=== PATIENT | female | born 1945 | race Caucasian/White ===

== ENCOUNTER 2018-06-07 16:57 | Inpatient (IN) | payer MEDICARE, MEDICAID ==
[~2018-06-07] VITALS: Ht 167.6 cm; Wt 37.2 kg
[2018-06-07] MEDS ORDERED: FLUT12AE3 IH (17:17)
[2018-06-07] MEDS ORDERED: ALBU4TAB6 PO (17:17)
[2018-06-07] MEDS ORDERED: ASPI-1159 PO (17:17)
[2018-06-07] MEDS ORDERED: PRED5TAB48 PO (17:17)
[2018-06-07] MEDS ORDERED: ENAL10TA PO (17:17)
[2018-06-07] MEDS ORDERED: GABA-531 PO (17:17)
[2018-06-07] MEDS ORDERED: CYCLO BOTHEYE (17:17)
[2018-06-07] MEDS ORDERED: MECL-127 PO (17:17)
[2018-06-07] MEDS ORDERED: NITR0.4T49 SL (17:17)
[2018-06-07] MEDS ORDERED: TRAM50TA3 PO (17:17)
[2018-06-07] MEDS ORDERED: LAMO200T PO (17:17)
[2018-06-07] MEDS ORDERED: DIAZ10TA4 PO (17:17)
[2018-06-07] MEDS ORDERED: KETOROLAC 15MG/ML VIAL IV ONE (18:30)
[2018-06-07] MEDS ORDERED: LEVOFLOXACIN 750MG PREMIX 150 ML IV ONE (18:30)
[2018-06-07] MEDS ORDERED: SODIUM CHLORIDE 0.9% 1000ML BAG (SEPSIS BOLUS) IV ONE (18:30)
[2018-06-07 19:09] LABS: BASOPHILS % 1.2 % (0.0-2.0); EOSINOPHILS % 0.3 % (0.0-5.0); HEMATOCRIT. 44.9 % (36.0-48.0); HEMOGLOBIN. 13.9 g/dL (12.0-16.0); LYMPHOCYTES % 11.6 % (20.0-50.0); MEAN CORPUSCULAR VOLUME 80.4 fL (81.0-99.0); MEAN PLATELET VOLUME 7.9 fl (7.4-10.4); MONOCYTES % 7.6 % (2.0-8.0); NEUTROPHILS % 79.3 % (40.0-76.0); PLATELET 358 x1000/uL (130-400); RED BLOOD CELL COUNT 5.59 mill/uL (4.2-5.4); RED CELL DISTRIBUTION WIDTH 17.3 % (11.6-14.6)
[2018-06-07 19:14] LABS: CHLORIDE 102 mEq/L (98-107)
[2018-06-07 19:24] LABS: INR 0.9; PARTIAL THROMBOPLASTIN TIME 24.1 sec (23.4-31.0); PROTHROMBIN TIME 9.4 sec (9.1-11.1)
[2018-06-07] MEDS ORDERED: LORAZEPAM 1MG TABLET PO PRN (23:00)
[2018-06-07] MEDS ORDERED: DOCUSATE SODIUM 100MG CAPSULE PO PRN (23:00)
[2018-06-07] MEDS ORDERED: NA PHOS,M-B/NA PHOS,DI-BA ENEMA 118ML PR PRN (23:00)
[2018-06-07] MEDS ORDERED: ONDANSETRON HCL 4MG/2ML INJ IV PRN (23:00)
[2018-06-07] MEDS ORDERED: LEVOFLOXACIN 500MG PREMIX 100 ML IV SCH (23:00)
[2018-06-07] MEDS ORDERED: ACETAMINOPHEN 325MG TABLET PO PRN (23:00)
[2018-06-07] MEDS ORDERED: NITROGLYCERIN 0.4MG TABLET SL SL PRN (23:00)
[2018-06-07] MEDS ORDERED: KETOROLAC 15MG/ML VIAL IV PRN (23:00)
[2018-06-07] MEDS ORDERED: ZOLPIDEM TARTRATE 5MG TABLET PO PRN (23:00)
[2018-06-07] MEDS ORDERED: MAGNESIUM/ALUMINUM HYDROXIDE/SIMETHICONE 30ML UDC PO PRN (23:00)
[2018-06-07] MEDS ORDERED: CLONIDINE 0.1MG TABLET PO PRN (23:00)
[2018-06-07] MEDS ORDERED: TRAMADOL 50MG TABLET PO PRN (23:00)
[2018-06-07] MEDS ORDERED: IPRATROPIUM/ALBUTEROL 0.5-3(2.5)MG/3ML NEB INH PRN (23:00)
[2018-06-08 01:00] VITALS: BP 137/84
[2018-06-08 04:00] VITALS: BP 139/67
[2018-06-08] MEDS ORDERED: CEFTRIAXONE 1 G PREMIX 50 ML IV SCH (05:00)
[2018-06-08] MEDS: GABAPENTIN 100MG CAPSULE PO SCH ×3 (07:10→21:01)
[2018-06-08 08:00] VITALS: BP 122/65
[2018-06-08 08:09] LABS: CREATINE KINASE 70 IU/L (26-192)
[2018-06-08 08:10] LABS: CREATINE KINASE MB FRACTION 2.8 ng/mL (0.5-3.6)
[2018-06-08] MEDS: FAMOTIDINE 20MG TABLET PO SCH ×2 (08:43→09:00)
[2018-06-08] MEDS: ASCORBIC ACID 500 MG TABLET PO SCH ×3 (08:44→20:08)
[2018-06-08] MEDS: ZINC SULFATE 220 MG ( 50 ) CAPSULE PO SCH ×2 (08:45→09:00)
[2018-06-08] MEDS: ASPIRIN 325MG EC TABLET PO SCH (08:45)
[2018-06-08] MEDS: METOPROLOL TARTRATE 25MG TABLET PO SCH ×3 (08:45→20:57)
[2018-06-08] MEDS: ENOXAPARIN 40MG/0.4ML SYR SUBCUT SCH ×2 (08:48→09:00)
[2018-06-08] MEDS: PREDNISONE 5MG TABLET PO SCH (11:45)
[2018-06-08 12:00] VITALS: BP 136/79
[2018-06-08] MEDS: IPRATROPIUM/ALBUTEROL 0.5-3(2.5)MG/3ML NEB HHN SCH ×2 (14:21→20:20)
[2018-06-08 16:00] VITALS: BP 124/60
[2018-06-08] MEDS: PREDNISONE 1MG TABLET PO SCH (17:00)
[2018-06-08 18:20] LABS: CREATINE KINASE 77 IU/L (26-192)
[2018-06-08 18:21] LABS: CREATINE KINASE MB FRACTION 2.7 ng/mL (0.5-3.6)
[2018-06-08 20:00] VITALS: BP 156/80
[2018-06-08] MEDS: GUAIFENESIN 200MG/10ML SUGAR FREE UDC PO PRN (20:06)
[2018-06-08] MEDS: LAMOTRIGINE 150MG TABLET PO SCH (20:08)
[2018-06-08] MEDS: LEVOFLOXACIN 250MG PREMIX 50 ML IV SCH (20:08)
[2018-06-09] VITALS: BP 156/80
[2018-06-09] MEDS: GUAIFENESIN 200MG/10ML SUGAR FREE UDC PO PRN ×3 (00:44→19:51)
[2018-06-09 04:00] VITALS: BP 144/66
[2018-06-09] MEDS: IPRATROPIUM/ALBUTEROL 0.5-3(2.5)MG/3ML NEB HHN SCH ×6 (04:00→21:15)
[2018-06-09] MEDS: CEFTRIAXONE 1 G PREMIX 50 ML IV SCH (04:59)
[2018-06-09] MEDS: GABAPENTIN 100MG CAPSULE PO SCH ×3 (05:00→21:00)
[2018-06-09 08:00] VITALS: BP 144/90
[2018-06-09] MEDS: ASPIRIN 325MG EC TABLET PO SCH (08:35)
[2018-06-09] MEDS: ASCORBIC ACID 500 MG TABLET PO SCH ×2 (08:36→21:05)
[2018-06-09] MEDS: METOPROLOL TARTRATE 25MG TABLET PO SCH ×2 (08:39→20:59)
[2018-06-09] MEDS: FAMOTIDINE 20MG TABLET PO SCH (08:39)
[2018-06-09] MEDS: ZINC SULFATE 220 MG ( 50 ) CAPSULE PO SCH (08:39)
[2018-06-09] MEDS: LAMOTRIGINE 150MG TABLET PO SCH ×2 (08:39→20:59)
[2018-06-09] MEDS: ENOXAPARIN 40MG/0.4ML SYR SUBCUT SCH (08:40)
[2018-06-09] MEDS: PREDNISONE 5MG TABLET PO SCH (08:40)
[2018-06-09 12:00] VITALS: BP 136/80
[2018-06-09 16:00] VITALS: BP 122/68
[2018-06-09] MEDS: PREDNISONE 1MG TABLET PO SCH (16:44)
[2018-06-09] MEDS: LEVOFLOXACIN 250MG PREMIX 50 ML IV SCH (19:43)
[2018-06-09 20:00] VITALS: BP 126/76
[2018-06-10] VITALS: BP 130/66
[2018-06-10] MEDS: IPRATROPIUM/ALBUTEROL 0.5-3(2.5)MG/3ML NEB HHN SCH ×2 (00:40→06:13)
[2018-06-10 04:00] VITALS: BP 140/60
[2018-06-10] MEDS: CEFTRIAXONE 1 G PREMIX 50 ML IV SCH (05:33)
[2018-06-10] MEDS: GABAPENTIN 100MG CAPSULE PO SCH (05:33)
== END 2018-06-10 09:07 | disposition left against medical advice (07) | DRG 189 ==
LOC: ER 16:57 → 6WST 22:50 → SUPCPDRO 22:52 → EDBEDREQTM 23:08 → EDBEDREQ 23:08 → ENRESERV 23:13
PROVIDERS: ADMIT Internal Medicine; ATTEND Internal Medicine
DX: J96.00 Acute respiratory failure, unspecified whether with hypoxia or hypercapnia (principal); J44.1 Chronic obstructive pulmonary disease with (acute) exacerbation; Z68.1 Body mass index [BMI] 19.9 or less, adult; K29.70 Gastritis, unspecified, without bleeding; G40.909 Epilepsy, unspecified, not intractable, without status epilepticus; Z86.73 Personal history of transient ischemic attack (TIA), and cerebral infarction without residual deficits; Z90.710 Acquired absence of both cervix and uterus; Z99.81 Dependence on supplemental oxygen; Z85.118 Personal history of other malignant neoplasm of bronchus and lung; Z88.6 Allergy status to analgesic agent; Z88.5 Allergy status to narcotic agent; Z91.81 History of falling; Z53.21 Procedure and treatment not carried out due to patient leaving prior to being seen by health care provider
CPT/HCPCS: 36415; 71045; 73030; 74176; 82550; 82553; 83605; 84145; 84484; 87804; 93005; 93306; 93970; 94640; 96365; 96366; 96375; 97162; 99285; J0696; J1650; J1885; J1956; J7030; J7050; J7512; J7620

== ENCOUNTER 2018-06-17 16:12 | Emergency (ER) | payer MEDICARE, MEDICAID ==
[~2018-06-17] VITALS: Ht 162.6 cm; Wt 45.0 kg
[~2018-06-17 16:12] MED LIST: ALBU4TAB6 PO; ASPI-1159 PO; CYCLO BOTHEYE; DIAZ10TA4 PO; ENAL10TA PO; FLUT12AE3 IH; GABA-531 PO; LAMO200T PO; MECL-127 PO; NITR0.4T49 SL; PRED5TAB48 PO; TRAM50TA3 PO
[2018-06-17] MEDS ORDERED: ALBUTEROL (0.083%) 2.5MG/3ML NEB HHN STA (18:17)
[2018-06-17] MEDS ORDERED: ONDANSETRON HCL 4MG/2ML INJ IV STA (18:17)
[2018-06-17] MEDS ORDERED: DIAZEPAM 5 MG TABLET PO ONE (18:30)
[2018-06-17] MEDS: SODIUM CHLORIDE 0.9% 500 ML IV ONE ×2 (18:48→18:50)
[2018-06-17 19:15] LABS: EOSINOPHILS % 0.4 % (0.0-5.0); HEMATOCRIT. 41.3 % (36.0-48.0); HEMOGLOBIN. 12.9 g/dL (12.0-16.0); LYMPHOCYTES % 11.8 % (20.0-50.0); MEAN CORPUSCULAR HEMOGLOBIN 25.2 pg (28.0-32.0); MEAN CORPUSCULAR VOLUME 80.6 fL (81.0-99.0); MEAN PLATELET VOLUME 7.2 fl (7.4-10.4); MONOCYTES % 4.6 % (2.0-8.0); NEUTROPHILS % 82.2 % (40.0-76.0); PLATELET 327 x1000/uL (130-400); RED BLOOD CELL COUNT 5.13 mill/uL (4.2-5.4); RED CELL DISTRIBUTION WIDTH 18.8 % (11.6-14.6)
[2018-06-17 19:18] LABS: CHLORIDE 104 mEq/L (98-107)
[2018-06-17 19:22] LABS: INR 0.9; PARTIAL THROMBOPLASTIN TIME 25.9 sec (23.4-31.0); PROTHROMBIN TIME 9.4 sec (9.1-11.1)
[2018-06-17 19:30] VITALS: BP 157/81
[2018-06-17 19:40] LABS: CLARITY URINE CLEAR (CLEAR); COLOR URINE YELLOW (YELLOW); KETONES URINE NEGATIVE (NEGATIVE); LEUKOCYTE ESTERASE URINE TRACE (NEGATIVE); NITRITE URINE NEGATIVE (NEGATIVE); OCCULT BLOOD URINE NEGATIVE (NEGATIVE); PH URINE 7.5 (4.5-8.0); PROTEIN URINE NEGATIVE (NEGATIVE); SPECIFIC GRAVITY URINE 1.005 (1.005-1.030); UROBILINOGEN URINE 0.2 E.U./dL (0.2-1.0)
== END 2018-06-18 15:53 | disposition left against medical advice (07) ==
LOC: ER 16:17
DX: R42 Dizziness and giddiness (principal); K57.90 Diverticulosis of intestine, part unspecified, without perforation or abscess without bleeding; C80.1 Malignant (primary) neoplasm, unspecified; J44.9 Chronic obstructive pulmonary disease, unspecified; R56.9 Unspecified convulsions; Z88.5 Allergy status to narcotic agent; Z79.82 Long term (current) use of aspirin; Z86.73 Personal history of transient ischemic attack (TIA), and cerebral infarction without residual deficits; Z90.710 Acquired absence of both cervix and uterus
CPT/HCPCS: 36415; 71045; 80053; 81003; 83735; 83880; 84484; 85025; 85610; 85730; 93005; 96361; 96374; 99284; J2405; J7040; J7611

== ENCOUNTER 2018-07-02 22:52 | Inpatient (IN) | payer MEDICARE, MEDICAID ==
[~2018-07-02] VITALS: Ht 167.6 cm; Wt 39.0 kg
[2018-07-03] MEDS ORDERED: KETOROLAC 30MG/ML VIAL IV STA (00:10)
[2018-07-03 00:40] LABS: BASOPHILS % 0.9 % (0.0-2.0); HEMATOCRIT. 40.8 % (36.0-48.0); HEMOGLOBIN. 12.7 g/dL (12.0-16.0); LYMPHOCYTES % 14.7 % (20.0-50.0); MEAN CORPUSCULAR HEMOGLOBIN 25.2 pg (28.0-32.0); MEAN CORPUSCULAR VOLUME 80.6 fL (81.0-99.0); MEAN PLATELET VOLUME 6.7 fl (7.4-10.4); MONOCYTES % 5.8 % (2.0-8.0); NEUTROPHILS % 77.6 % (40.0-76.0); PLATELET 295 x1000/uL (130-400); RED BLOOD CELL COUNT 5.06 mill/uL (4.2-5.4); RED CELL DISTRIBUTION WIDTH 18.9 % (11.6-14.6)
[2018-07-03 00:52] LABS: CHLORIDE 102 mEq/L (98-107)
[2018-07-03] MEDS ORDERED: MORPHINE SULFATE 10 MG/ML CPJ IV ONE (04:15)
[2018-07-03] MEDS ORDERED: DIPHENHYDRAMINE 50MG/ML VIAL IV PRN (06:45)
[2018-07-03] MEDS ORDERED: CLONIDINE 0.1MG TABLET PO PRN (06:45)
[2018-07-03] MEDS ORDERED: LORAZEPAM 2MG/ML CPJ IV PRN (06:45)
[2018-07-03] MEDS ORDERED: MAGNESIUM/ALUMINUM HYDROXIDE/SIMETHICONE 30ML UDC PO PRN (06:45)
[2018-07-03] MEDS ORDERED: GUAIFENESIN 200MG/10ML SUGAR FREE UDC PO PRN (06:45)
[2018-07-03] MEDS ORDERED: ONDANSETRON HCL 4MG/2ML INJ IV PRN (06:45)
[2018-07-03] MEDS ORDERED: HYDRALAZINE 20MG/ML VIAL IV PRN (06:45)
[2018-07-03] MEDS ORDERED: ACETAMINOPHEN 325MG TABLET PO PRN (06:45)
[2018-07-03] MEDS ORDERED: DOCUSATE SODIUM 100MG CAPSULE PO PRN (06:45)
[2018-07-03] MEDS ORDERED: TRAMADOL 50MG TABLET PO PRN (07:00)
[2018-07-03 15:56] LABS: CREATINE KINASE 120 IU/L (26-192)
[2018-07-03 15:57] LABS: CREATINE KINASE MB FRACTION 3.5 ng/mL (0.5-3.6)
[2018-07-03] MEDS: IPRATROPIUM/ALBUTEROL 0.5-3(2.5)MG/3ML NEB INH PRN (16:58)
[2018-07-03 17:17] VITALS: BP 142/71
[2018-07-03 17:26] VITALS: BP 142/71
[2018-07-03 20:00] VITALS: BP 144/86
[2018-07-03] MEDS: SODIUM CHLORIDE 0.9% INJ 3ML FLUSH IVF SCH (21:41)
[2018-07-03] MEDS: ENOXAPARIN 40MG/0.4ML SYR SUBCUT SCH (21:41)
[2018-07-03] MEDS: ASPIRIN 81MG EC TABLET PO SCH (21:42)
[2018-07-04] VITALS: BP 119/64
[2018-07-04] MEDS: IPRATROPIUM/ALBUTEROL 0.5-3(2.5)MG/3ML NEB INH PRN (00:12)
[2018-07-04 04:00] VITALS: BP 146/77
[2018-07-04] MEDS: SODIUM CHLORIDE 0.9% INJ 3ML FLUSH IVF SCH (05:23)
[2018-07-04 07:30] LABS: HEMATOCRIT. 39.8 % (36.0-48.0); HEMOGLOBIN. 12.4 g/dL (12.0-16.0); RED BLOOD CELL COUNT 4.91 mill/uL (4.2-5.4)
[2018-07-04 07:31] LABS: BASOPHILS % 1.6 % (0.0-2.0); LYMPHOCYTES % 33.5 % (20.0-50.0); MEAN CORPUSCULAR HEMOGLOBIN 25.3 pg (28.0-32.0); MEAN CORPUSCULAR VOLUME 81.1 fL (81.0-99.0); MEAN PLATELET VOLUME 7.2 fl (7.4-10.4); MONOCYTES % 8.1 % (2.0-8.0); NEUTROPHILS % 54.8 % (40.0-76.0); PLATELET 264 x1000/uL (130-400); RED CELL DISTRIBUTION WIDTH 18.6 % (11.6-14.6)
[2018-07-04 07:48] LABS: CHLORIDE 104 mEq/L (98-107)
[2018-07-04 08:00] VITALS: BP 124/59
[2018-07-04 08:03] LABS: CREATINE KINASE 80 IU/L (26-192)
[2018-07-04 08:04] LABS: HDL CHOLESTEROL 79 mg/dL (40-59); LDL CHOLESTEROL 89 mg/dL (5-100)
[2018-07-04 08:10] LABS: CREATINE KINASE MB FRACTION 2.3 ng/mL (0.5-3.6)
[2018-07-04] MEDS: ASPIRIN 81MG EC TABLET PO SCH (08:36)
[2018-07-04 08:59] VITALS: BP 125/56
[2018-07-04] MEDS: ENOXAPARIN 40MG/0.4ML SYR SUBCUT SCH (10:00)
== END 2018-07-04 10:58 | disposition home or self-care (01) | DRG 312 ==
LOC: ER 22:52 → 7WST 07-03 01:57 → EDBEDREQ 07-03 02:00 → EDBEDREQTM 07-03 02:00 → ENRESERV 07-03 14:04
PROVIDERS: ADMIT Internal Medicine; ATTEND Internal Medicine
DX: R55 Syncope and collapse (principal); F12.90 Cannabis use, unspecified, uncomplicated; G40.909 Epilepsy, unspecified, not intractable, without status epilepticus; F17.210 Nicotine dependence, cigarettes, uncomplicated; J44.9 Chronic obstructive pulmonary disease, unspecified; I10 Essential (primary) hypertension; G89.29 Other chronic pain; M25.511 Pain in right shoulder; Z90.710 Acquired absence of both cervix and uterus; Z86.73 Personal history of transient ischemic attack (TIA), and cerebral infarction without residual deficits; Z88.5 Allergy status to narcotic agent; Z71.6 Tobacco abuse counseling
CPT/HCPCS: 36415; 71045; 73030; 80061; 82550; 82553; 83036; 83880; 84439; 84443; 84484; 85379; 93005; 93306; 93970; 96374; 96375; 99285; J1650; J1885; J2270; J7620

== ENCOUNTER 2018-11-17 14:39 | Inpatient (IN) | payer MEDICARE, MEDICAID ==
[~2018-11-17] VITALS: Ht 154.9 cm; Wt 36.3 kg
[~2018-11-17 14:39] MED LIST changes: -ASPI-1159 PO; +ASPI-1393 PO
[2018-11-17] MEDS ORDERED: SODIUM CHLORIDE 0.9% 1,000 ML IV ONE (15:44)
[2018-11-17] MEDS ORDERED: ONDANSETRON HCL 4MG/2ML INJ IV STA (15:44)
[2018-11-17] MEDS ORDERED: MORPHINE SULFATE 4 MG/ML CPJ (NOT FOR IM USE) IV STA (15:44)
[2018-11-17 16:13] LABS: EOSINOPHILS % 1.5 % (0.0-5.0); HEMATOCRIT. 46.1 % (36.0-48.0); HEMOGLOBIN. 14.5 g/dL (12.0-16.0); LYMPHOCYTES % 14.2 % (20.0-50.0); MEAN CORPUSCULAR HEMOGLOBIN 25.1 pg (28.0-32.0); MEAN PLATELET VOLUME 7.1 fl (7.4-10.4); NEUTROPHILS % 76.3 % (40.0-76.0); PLATELET 320 x1000/uL (130-400); RED BLOOD CELL COUNT 5.76 mill/uL (4.2-5.4); RED CELL DISTRIBUTION WIDTH 21.2 % (11.6-14.6)
[2018-11-17 16:16] LABS: CHLORIDE 100 mEq/L (98-107)
[2018-11-17 16:18] LABS: PROTHROMBIN TIME 9.9 sec (9.6-11.0)
[2018-11-17] MEDS ORDERED: IOHEXOL-300 100 ML BOTTLE ONE (17:24)
[2018-11-17] MEDS ORDERED: MORPHINE SULFATE 4 MG/ML CPJ (NOT FOR IM USE) IV ONE (18:15)
[2018-11-17] MEDS ORDERED: IPRATROPIUM/ALBUTEROL 0.5-3(2.5)MG/3ML NEB INH PRN (19:30)
[2018-11-17] MEDS ORDERED: ONDANSETRON HCL 4MG/2ML INJ IV PRN (19:30)
[2018-11-17] MEDS ORDERED: DOCUSATE SODIUM 100MG CAPSULE PO PRN (19:30)
[2018-11-17] MEDS ORDERED: GUAIFENESIN 200MG/10ML SUGAR FREE UDC PO PRN (19:30)
[2018-11-17] MEDS ORDERED: NA PHOS,M-B/NA PHOS,DI-BA ENEMA 118ML PR PRN (19:30)
[2018-11-17] MEDS ORDERED: DIPHENHYDRAMINE 50MG/ML VIAL IV PRN (19:30)
[2018-11-17] MEDS ORDERED: HYDROCODONE/ACETAMINOPHEN 5/325MG TABLET PO PRN (19:30)
[2018-11-17] MEDS ORDERED: MAGNESIUM/ALUMINUM HYDROXIDE/SIMETHICONE 30ML UDC PO PRN (19:30)
[2018-11-17] MEDS ORDERED: CLONIDINE 0.1MG TABLET PO PRN (19:30)
[2018-11-17] MEDS ORDERED: ACETAMINOPHEN 325MG TABLET PO PRN (19:30)
[2018-11-17 19:57] LABS: CHLORIDE 105 mEq/L (98-107)
[2018-11-17 22:00] VITALS: BP 134/61
[2018-11-17] MEDS ORDERED: IPRATROPIUM/ALBUTEROL 0.5-3(2.5)MG/3ML NEB INH SCH (23:30)
[2018-11-17] MEDS: MORPHINE SULFATE 2 MG/ML CPJ (NOT FOR IM USE) IV PRN (23:52)
[2018-11-18] VITALS: BP 134/61
[2018-11-18] MEDS: LORAZEPAM 2MG/ML CPJ IV PRN ×2 (03:40→14:28)
[2018-11-18 04:00] VITALS: BP 119/54
[2018-11-18] MEDS: IPRATROPIUM/ALBUTEROL 0.5-3(2.5)MG/3ML NEB INH SCH ×5 (04:14→20:47)
[2018-11-18] MEDS ORDERED: DIAZ10TA MT (05:36)
[2018-11-18] MEDS ORDERED: LAM2 MT (05:36)
[2018-11-18] MEDS ORDERED: DIPH1TAB MT (05:36)
[2018-11-18 06:32] LABS: CHLORIDE 102 mEq/L (98-107)
[2018-11-18 06:40] LABS: BASOPHILS % 1.2 % (0.0-2.0); EOSINOPHILS % 1.8 % (0.0-5.0); HEMATOCRIT. 41.1 % (36.0-48.0); HEMOGLOBIN. 12.8 g/dL (12.0-16.0); LYMPHOCYTES % 31.6 % (20.0-50.0); MEAN CORPUSCULAR VOLUME 80.3 fL (81.0-99.0); MEAN PLATELET VOLUME 7.3 fl (7.4-10.4); MONOCYTES % 7.9 % (2.0-8.0); NEUTROPHILS % 57.5 % (40.0-76.0); PLATELET 298 x1000/uL (130-400); RED BLOOD CELL COUNT 5.13 mill/uL (4.2-5.4); RED CELL DISTRIBUTION WIDTH 21.1 % (11.6-14.6)
[2018-11-18 06:45] LABS: LDL CHOLESTEROL 80 mg/dL (5-100); T4 FREE 0.75 ng/dL (0.76-1.46)
[2018-11-18 06:46] LABS: HDL CHOLESTEROL 86 mg/dL (40-59)
[2018-11-18 08:00] VITALS: BP 131/76
[2018-11-18] MEDS: DEXT 5%/0.45% NACL 1000ML 1,000 ML IV SCH (11:47)
[2018-11-18 12:00] VITALS: BP 128/55
[2018-11-18 16:00] VITALS: BP 136/71
[2018-11-18 20:00] VITALS: BP 164/79
[2018-11-18] MEDS: MORPHINE SULFATE 2 MG/ML CPJ (NOT FOR IM USE) IV PRN (21:44)
[2018-11-18] MEDS ORDERED: DIAZEPAM 5 MG TABLET PO PRN (22:15)
[2018-11-18] MEDS: GABAPENTIN 300MG CAPSULE PO SCH (23:16)
[2018-11-19] VITALS: BP 109/52
[2018-11-19 04:00] VITALS: BP 117/60
[2018-11-19] MEDS: DEXT 5%/0.45% NACL 1000ML 1,000 ML IV SCH (04:35)
[2018-11-19] MEDS: IPRATROPIUM/ALBUTEROL 0.5-3(2.5)MG/3ML NEB INH SCH ×5 (04:48→16:22)
[2018-11-19] MEDS: GABAPENTIN 300MG CAPSULE PO SCH ×2 (06:02→13:27)
[2018-11-19 06:18] LABS: CHLORIDE 103 mEq/L (98-107)
[2018-11-19 06:22] LABS: BASOPHILS % 1.4 % (0.0-2.0); EOSINOPHILS % 2.9 % (0.0-5.0); HEMATOCRIT. 38.6 % (36.0-48.0); HEMOGLOBIN. 11.9 g/dL (12.0-16.0); LYMPHOCYTES % 30.1 % (20.0-50.0); MEAN CORPUSCULAR HEMOGLOBIN 24.8 pg (28.0-32.0); MEAN PLATELET VOLUME 7.1 fl (7.4-10.4); MONOCYTES % 8.7 % (2.0-8.0); NEUTROPHILS % 56.9 % (40.0-76.0); PLATELET 270 x1000/uL (130-400); RED BLOOD CELL COUNT 4.82 mill/uL (4.2-5.4); RED CELL DISTRIBUTION WIDTH 20.9 % (11.6-14.6)
[2018-11-19 08:00] VITALS: BP 103/53
[2018-11-19] MEDS: ENALAPRIL 5MG TABLET PO SCH ×2 (08:58→17:00)
[2018-11-19] MEDS: LAMOTRIGINE 100MG TABLET PO SCH ×2 (09:00→17:59)
[2018-11-19] MEDS ORDERED: PREDNISONE 5MG TABLET PO SCH ×2 (09:00→19:00)
[2018-11-19 16:00] VITALS: BP 118/67
== END 2018-11-19 18:30 | disposition left against medical advice (07) | DRG 445 ==
LOC: ER 14:49 → 6EST 18:44 → ENRESERV 19:48 → 6EST 22:27
PROVIDERS: ADMIT Internal Medicine; ATTEND Internal Medicine
DX: K83.8 Other specified diseases of biliary tract (principal); Z68.1 Body mass index [BMI] 19.9 or less, adult; E46 Unspecified protein-calorie malnutrition; R64 Cachexia; E86.0 Dehydration; F12.90 Cannabis use, unspecified, uncomplicated; I10 Essential (primary) hypertension; M25.519 Pain in unspecified shoulder; M54.9 Dorsalgia, unspecified; G89.29 Other chronic pain; Z53.21 Procedure and treatment not carried out due to patient leaving prior to being seen by health care provider; J43.9 Emphysema, unspecified; N28.1 Cyst of kidney, acquired; F17.200 Nicotine dependence, unspecified, uncomplicated; Z85.118 Personal history of other malignant neoplasm of bronchus and lung; Z90.710 Acquired absence of both cervix and uterus; Z88.5 Allergy status to narcotic agent; Z88.6 Allergy status to analgesic agent; Z71.6 Tobacco abuse counseling; J44.9 Chronic obstructive pulmonary disease, unspecified
CPT/HCPCS: 36415; 74177; 78227; 80048; 80061; 83605; 84439; 84443; 93005; 94640; 96374; 99285; A9537; J2060; J2270; J2405; J7030; J7512; J7620; Q9967

== ENCOUNTER 2019-02-06 20:54 | Emergency (ER) | payer MEDICARE, MEDICAID ==
[~2019-02-06] VITALS: Ht 162.6 cm; Wt 37.0 kg
[~2019-02-06 20:54] MED LIST changes: +DIAZ10TA MT; +DIPH1TAB MT; +LAM2 MT
[2019-02-06] MEDS ORDERED: METHYLPREDNISOLONE SOD SUCC 125 MG/2 ML VIAL IV STA (21:42)
[2019-02-06] MEDS ORDERED: IPRATROPIUM BROMIDE (0.02%) 0.5MG/2.5ML NEB HHN STA (21:42)
[2019-02-06] MEDS ORDERED: ALBUTEROL (0.083%) 2.5MG/3ML NEB HHN STA (21:42)
[2019-02-06] MEDS ORDERED: SODIUM CHLORIDE 0.9% 1000ML BAG (SEPSIS BOLUS) IV ONE (21:45)
[2019-02-06] MEDS ORDERED: LEVOFLOXACIN 750MG PREMIX 150 ML IV ONE (21:45)
[2019-02-06] MEDS ORDERED: ASPIRIN 81MG TABLET PO ONE (21:45)
[2019-02-06 23:00] LABS: BASOPHILS % 1.4 % (0.0-2.0); HEMATOCRIT. 42.8 % (36.0-48.0); HEMOGLOBIN. 13.5 g/dL (12.0-16.0); LYMPHOCYTES % 18.8 % (20.0-50.0); MEAN CORPUSCULAR HEMOGLOBIN 26.4 pg (28.0-32.0); MEAN CORPUSCULAR VOLUME 83.6 fL (81.0-99.0); MEAN PLATELET VOLUME 6.8 fl (7.4-10.4); MONOCYTES % 6.7 % (2.0-8.0); NEUTROPHILS % 72.1 % (40.0-76.0); PLATELET 298 x1000/uL (130-400); RED BLOOD CELL COUNT 5.12 mill/uL (4.2-5.4); RED CELL DISTRIBUTION WIDTH 16.2 % (11.6-14.6)
[2019-02-06 23:06] LABS: CHLORIDE 98 mEq/L (98-107)
[2019-02-06 23:10] LABS: INR 0.9; PARTIAL THROMBOPLASTIN TIME 26.7 sec (23.4-31.0); PROTHROMBIN TIME 9.5 sec (9.6-11.0)
[2019-02-07 00:40] VITALS: BP 161/92
== END 2019-02-07 01:04 | disposition left against medical advice (07) ==
LOC: ER 20:54
DX: J44.9 Chronic obstructive pulmonary disease, unspecified (principal); M25.511 Pain in right shoulder; I11.9 Hypertensive heart disease without heart failure; N28.9 Disorder of kidney and ureter, unspecified; Z88.5 Allergy status to narcotic agent; Z79.899 Other long term (current) drug therapy; Z79.82 Long term (current) use of aspirin
CPT/HCPCS: 36415; 71045; 73030; 80053; 83605; 84145; 84484; 85025; 85610; 85730; 87040; 93005; 94644; 96365; 96366; 96375; 99285; J1956; J2930; J7030; J7611

== ENCOUNTER 2019-02-18 20:12 | Emergency (ER) | payer MEDICARE, MEDICAID ==
[~2019-02-18] VITALS: Ht 172.7 cm; Wt 52.0 kg
[2019-02-18] MEDS ORDERED: SODIUM CHLORIDE 0.9% 1,000 ML IV ONE (22:08)
[2019-02-18] MEDS ORDERED: ONDANSETRON HCL 4MG/2ML INJ IV STA (22:08)
[2019-02-18] MEDS ORDERED: KETOROLAC 30MG/ML VIAL IV STA (22:08)
[2019-02-18 23:30] LABS: BASOPHILS % 1.1 % (0.0-2.0); CHLORIDE 100 mEq/L (98-107); EOSINOPHILS % 0.7 % (0.0-5.0); HEMATOCRIT. 41.8 % (36.0-48.0); INR 0.9; LYMPHOCYTES % 17.9 % (20.0-50.0); MEAN CORPUSCULAR HEMOGLOBIN 26.1 pg (28.0-32.0); MEAN CORPUSCULAR VOLUME 84.1 fL (81.0-99.0); MEAN PLATELET VOLUME 6.9 fl (7.4-10.4); MONOCYTES % 6.8 % (2.0-8.0); NEUTROPHILS % 73.5 % (40.0-76.0); PLATELET 273 x1000/uL (130-400); PROTHROMBIN TIME 9.5 sec (9.6-11.0); RED BLOOD CELL COUNT 4.98 mill/uL (4.2-5.4)
[2019-02-19] MEDS ORDERED: MAGNESIUM CITRATE 300ML SOLUTION PO ONE
[2019-02-19] MEDS ORDERED: ALBUTEROL (0.5%) 2.5MG/0.5ML NEB HHN ONE (00:45)
[2019-02-19] MEDS ORDERED: ALBUTEROL (0.5%) 2.5MG/0.5ML NEB HHN SCH (01:30)
[2019-02-19 01:44] VITALS: BP 122/54
== END 2019-02-19 02:30 | disposition home or self-care (01) ==
LOC: ER 23:20
DX: R10.9 Unspecified abdominal pain (principal); K59.00 Constipation, unspecified; J44.9 Chronic obstructive pulmonary disease, unspecified; I10 Essential (primary) hypertension; Z86.73 Personal history of transient ischemic attack (TIA), and cerebral infarction without residual deficits; Z79.82 Long term (current) use of aspirin; Z79.899 Other long term (current) drug therapy; Z88.5 Allergy status to narcotic agent
CPT/HCPCS: 36415; 74176; 80053; 83690; 84484; 85025; 85610; 93005; 99284; J1885; J2405; J7030

== ENCOUNTER 2019-03-07 12:15 | Inpatient (IN) | payer MEDICARE, MEDICAID ==
[~2019-03-07] VITALS: Ht 175.3 cm; Wt 49.9 kg
[2019-03-07] MEDS ORDERED: ALBUTEROL (0.083%) 2.5MG/3ML NEB HHN STA (12:35)
[2019-03-07] MEDS ORDERED: IPRATROPIUM BROMIDE (0.02%) 0.5MG/2.5ML NEB HHN STA (12:35)
[2019-03-07] MEDS ORDERED: METHYLPREDNISOLONE SOD SUCC 125 MG/2 ML VIAL IV STA (12:35)
[2019-03-07 13:17] LABS: BASOPHILS % 0.8 % (0.0-2.0); EOSINOPHILS % 1.9 % (0.0-5.0); HEMATOCRIT. 43.6 % (36.0-48.0); HEMOGLOBIN. 13.6 g/dL (12.0-16.0); LYMPHOCYTES % 28.2 % (20.0-50.0); MEAN CORPUSCULAR HEMOGLOBIN 25.7 pg (28.0-32.0); MEAN CORPUSCULAR VOLUME 82.6 fL (81.0-99.0); MEAN PLATELET VOLUME 6.6 fl (7.4-10.4); MONOCYTES % 9.5 % (2.0-8.0); NEUTROPHILS % 59.6 % (40.0-76.0); PLATELET 305 x1000/uL (130-400); RED BLOOD CELL COUNT 5.27 mill/uL (4.2-5.4); RED CELL DISTRIBUTION WIDTH 16.2 % (11.6-14.6)
[2019-03-07 13:23] LABS: CHLORIDE 97 mEq/L (98-107)
[2019-03-07 13:46] LABS: BG BASE EXCESS 5.5 mmol/L (-2.0-2.0); BG CARBOXYHEMOGLOBIN 3.6 % (0.5-1.5); BG DEOXYHEMOGLOBIN 1.2 % (0.0-5.0); BG FRACTION INSPIRED OXYGEN 60; BG HCO3 ACT 32.4 mmol/L (22.0-26.0); BG METHEMOGLOBIN 0.1 % (0.0-1.5); BG OXYGEN SATURATION 98.8 % (92.0-98.5); BG OXYHEMOGLOBIN 95.1 % (94.0-97.0); BG PH 7.373 (7.350-7.450); BG PO2 130.4 mmHg (75.0-100.0); BG SAMPLE SITE RIGHT RADIAL; BG TOTAL HEMOGLOBIN 14.1 g/dL (12.0-18.0)
[2019-03-07] MEDS ORDERED: GUAIFENESIN 200MG/10ML SUGAR FREE UDC PO PRN (16:15)
[2019-03-07] MEDS ORDERED: DOCUSATE SODIUM 100MG CAPSULE PO PRN (16:15)
[2019-03-07] MEDS ORDERED: ONDANSETRON HCL 4MG/2ML INJ IV PRN (16:15)
[2019-03-07] MEDS ORDERED: CLONIDINE 0.1MG TABLET PO PRN (16:15)
[2019-03-07] MEDS ORDERED: ACETAMINOPHEN 325MG TABLET PO PRN (16:15)
[2019-03-07] MEDS ORDERED: IPRATROPIUM/ALBUTEROL 0.5-3(2.5)MG/3ML NEB NEB PRN (16:15)
[2019-03-07] MEDS ORDERED: MAGNESIUM/ALUMINUM HYDROXIDE/SIMETHICONE 30ML UDC PO PRN (16:15)
[2019-03-07] MEDS ORDERED: LEVOFLOXACIN 500MG PREMIX 100 ML IV NR (17:10)
[2019-03-07 21:00] VITALS: BP 133/82
[2019-03-07] MEDS ORDERED: HYDROMORPHONE HCL/PF 2MG/ML CPJ IV PRN (21:00)
[2019-03-07] MEDS ORDERED: ENOXAPARIN 40MG/0.4ML SYR SUBCUT SCH (21:00)
[2019-03-07] MEDS: METHYLPREDNISOLONE SOD SUCC 125 MG/2 ML VIAL IV SCH (22:31)
[2019-03-08] MEDS: METHYLPREDNISOLONE SOD SUCC 125 MG/2 ML VIAL IV SCH ×3 (03:00→15:52)
[2019-03-08] MEDS: IPRATROPIUM/ALBUTEROL 0.5-3(2.5)MG/3ML NEB NEB SCH ×3 (05:34→15:00)
[2019-03-08 07:53] LABS: BASOPHILS % 0.5 % (0.0-2.0); EOSINOPHILS % 0.1 % (0.0-5.0); HEMOGLOBIN. 12.2 g/dL (12.0-16.0); LYMPHOCYTES % 11.2 % (20.0-50.0); MEAN CORPUSCULAR HEMOGLOBIN 25.7 pg (28.0-32.0); MEAN CORPUSCULAR VOLUME 82.4 fL (81.0-99.0); MEAN PLATELET VOLUME 7.1 fl (7.4-10.4); NEUTROPHILS % 84.2 % (40.0-76.0); PLATELET 324 x1000/uL (130-400); RED BLOOD CELL COUNT 4.73 mill/uL (4.2-5.4); RED CELL DISTRIBUTION WIDTH 15.8 % (11.6-14.6)
[2019-03-08 08:00] VITALS: BP 148/83
[2019-03-08 08:39] LABS: CHLORIDE 97 mEq/L (98-107)
[2019-03-08] MEDS ORDERED: ASPIRIN 81MG EC TABLET PO SCH (09:00)
[2019-03-08] MEDS ORDERED: AMLODIPINE 10MG TABLET PO SCH (09:00)
[2019-03-08] MEDS ORDERED: DIAZEPAM 5 MG TABLET PO PRN (11:00)
[2019-03-08] MEDS ORDERED: NICOTINE 21MG PATCH TD SCH (11:00)
[2019-03-08] MEDS ORDERED: NITROGLYCERIN 0.4MG TABLET SL SL PRN (11:00)
[2019-03-08] MEDS: LORATADINE 10MG TABLET PO SCH ×2 (11:53→11:55)
[2019-03-08] MEDS ORDERED: GABAPENTIN 300MG CAPSULE PO SCH (17:00)
[2019-03-08] MEDS ORDERED: MONTELUKAST SODIUM 10MG TABLET PO SCH (17:00)
[2019-03-08] MEDS ORDERED: LEVOFLOXACIN 500MG PREMIX 100 ML IV SCH (17:30)
[2019-03-08] MEDS ORDERED: LEVOFLOXACIN 250MG PREMIX 50 ML IV SCH (20:00)
== END 2019-03-08 16:17 | disposition left against medical advice (07) | DRG 189 ==
LOC: ER 12:15 → 7WST 14:36 → ENRESERV 19:41 → 7WST 21:13
PROVIDERS: ADMIT Hospitalist; ATTEND Hospitalist
PROC: 5A09357 Assistance with Respiratory Ventilation, Less than 24 Consecutive Hours, Continuous Positive Airway Pressure (ICD-10-PCS; principal; 2019-03-07)
DX: J96.00 Acute respiratory failure, unspecified whether with hypoxia or hypercapnia (principal); J44.1 Chronic obstructive pulmonary disease with (acute) exacerbation; E87.1 Hypo-osmolality and hyponatremia; F17.210 Nicotine dependence, cigarettes, uncomplicated; G40.909 Epilepsy, unspecified, not intractable, without status epilepticus; I25.10 Atherosclerotic heart disease of native coronary artery without angina pectoris; J84.10 Pulmonary fibrosis, unspecified; Z85.05 Personal history of malignant neoplasm of liver; I10 Essential (primary) hypertension; Z85.118 Personal history of other malignant neoplasm of bronchus and lung; Z86.73 Personal history of transient ischemic attack (TIA), and cerebral infarction without residual deficits; Z99.81 Dependence on supplemental oxygen; Z88.5 Allergy status to narcotic agent
CPT/HCPCS: 36415; 36600; 71045; 82375; 82805; 83880; 84484; 93005; 93970; 94640; 94644; 94660; 99291; J1170; J1956; J2930; J7611; J7620; A4315

== ENCOUNTER 2019-03-11 21:14 | Inpatient (IN) | payer MEDICARE, MEDICAID ==
[~2019-03-11] VITALS: Ht 327.7 cm; Wt 49.4 kg
[~2019-03-11 21:14] MED LIST changes: -CYCLO BOTHEYE
[2019-03-11 23:15] LABS: BASOPHILS % 0.8 % (0.0-2.0); HEMATOCRIT. 40.2 % (36.0-48.0); HEMOGLOBIN. 12.4 g/dL (12.0-16.0); LYMPHOCYTES % 11.4 % (20.0-50.0); MEAN CORPUSCULAR HEMOGLOBIN 25.3 pg (28.0-32.0); MEAN CORPUSCULAR VOLUME 82.1 fL (81.0-99.0); MEAN PLATELET VOLUME 6.7 fl (7.4-10.4); MONOCYTES % 6.8 % (2.0-8.0); PLATELET 297 x1000/uL (130-400); RED CELL DISTRIBUTION WIDTH 15.9 % (11.6-14.6)
[2019-03-11 23:23] LABS: CHLORIDE 99 mEq/L (98-107)
[2019-03-11] MEDS ORDERED: ALBUTEROL (0.083%) 2.5MG/3ML NEB HHN ONE (23:45)
[2019-03-12] MEDS ORDERED: LORAZEPAM 2MG/ML CPJ IV PRN (03:30)
[2019-03-12] MEDS ORDERED: DOCUSATE SODIUM 100MG CAPSULE PO PRN (03:30)
[2019-03-12] MEDS ORDERED: ONDANSETRON HCL 4MG/2ML INJ IV PRN (03:30)
[2019-03-12] MEDS ORDERED: NA PHOS,M-B/NA PHOS,DI-BA ENEMA 118ML PR PRN (03:30)
[2019-03-12] MEDS ORDERED: MORPHINE SULFATE 2 MG/ML CPJ (NOT FOR IM USE) IV PRN (03:30)
[2019-03-12] MEDS ORDERED: IPRATROPIUM/ALBUTEROL 0.5-3(2.5)MG/3ML NEB NEB PRN (03:30)
[2019-03-12] MEDS ORDERED: CLONIDINE 0.1MG TABLET PO PRN (03:30)
[2019-03-12] MEDS ORDERED: ACETAMINOPHEN 325MG TABLET PO PRN (03:30)
[2019-03-12] MEDS ORDERED: LEVOFLOXACIN 500MG PREMIX 100 ML IV ONE (06:10)
[2019-03-12 08:50] VITALS: BP 134/82
[2019-03-12] MEDS: METHYLPREDNISOLONE SOD SUCC 125 MG/2 ML VIAL IV SCH ×2 (09:00→13:13)
[2019-03-12 09:23] VITALS: BP 134/82
[2019-03-12] MEDS: IPRATROPIUM/ALBUTEROL 0.5-3(2.5)MG/3ML NEB NEB SCH ×3 (09:48→21:01)
[2019-03-12 11:50] VITALS: BP 163/98
[2019-03-12] MEDS: AMLODIPINE 10MG TABLET PO SCH (13:12)
[2019-03-12] MEDS: ENOXAPARIN 40MG/0.4ML SYR SUBCUT SCH (13:15)
[2019-03-12 15:51] VITALS: BP 135/76
[2019-03-12] MEDS: METHYLPREDNISOLONE SOD SUCC 40 MG/ML VIAL IV SCH ×2 (17:36→23:19)
[2019-03-12 20:00] VITALS: BP 121/70
[2019-03-12] MEDS: BUDESONIDE 0.5MG/2ML NEB HHN SCH (21:02)
[2019-03-12] MEDS: GUAIFENESIN 600MG ER TABLET PO SCH (21:45)
[2019-03-12] MEDS: GUAIFENESIN 200MG/10ML SUGAR FREE UDC PO PRN (23:19)
[2019-03-13] VITALS: BP 129/80
[2019-03-13] MEDS: IPRATROPIUM/ALBUTEROL 0.5-3(2.5)MG/3ML NEB NEB SCH ×4 (00:51→21:30)
[2019-03-13] MEDS ORDERED: PRED2.5T4 PO (01:20)
[2019-03-13 04:00] VITALS: BP 144/74
[2019-03-13] MEDS ORDERED: LEVOFLOXACIN 250MG PREMIX 50 ML IV SCH (06:00)
[2019-03-13 07:46] LABS: BASOPHILS % 0.2 % (0.0-2.0); HEMATOCRIT. 38.5 % (36.0-48.0); HEMOGLOBIN. 11.9 g/dL (12.0-16.0); LYMPHOCYTES % 6.1 % (20.0-50.0); MEAN CORPUSCULAR HEMOGLOBIN 25.3 pg (28.0-32.0); MEAN CORPUSCULAR VOLUME 81.7 fL (81.0-99.0); MEAN PLATELET VOLUME 7.3 fl (7.4-10.4); MONOCYTES % 1.7 % (2.0-8.0); PLATELET 294 x1000/uL (130-400); RED BLOOD CELL COUNT 4.72 mill/uL (4.2-5.4)
[2019-03-13 07:50] LABS: CHLORIDE 99 mEq/L (98-107)
[2019-03-13 08:00] VITALS: BP 128/72
[2019-03-13 08:00] LABS: BG BASE EXCESS 6.3 mmol/L (-2.0-2.0); BG CARBOXYHEMOGLOBIN 1.1 % (0.5-1.5); BG DEOXYHEMOGLOBIN 3.7 % (0.0-5.0); BG HCO3 ACT 32.1 mmol/L (22.0-26.0); BG METHEMOGLOBIN 0.2 % (0.0-1.5); BG OXYGEN SATURATION 96.3 % (92.0-98.5); BG PCO2 51.2 mmHg (35.0-45.0); BG PH 7.415 (7.350-7.450); BG PO2 80.3 mmHg (75.0-100.0); BG SAMPLE SITE RIGHT BRACHIAL; BG TOTAL HEMOGLOBIN 13.2 g/dL (12.0-18.0); BG VENT MODE NASAL CANNULA
[2019-03-13] MEDS: NICOTINE 14MG PATCH TD SCH (08:57)
[2019-03-13] MEDS: ENOXAPARIN 40MG/0.4ML SYR SUBCUT SCH ×2 (08:58→09:00)
[2019-03-13] MEDS: GUAIFENESIN 600MG ER TABLET PO SCH ×2 (09:00→21:57)
[2019-03-13] MEDS: AMLODIPINE 10MG TABLET PO SCH (09:00)
[2019-03-13] MEDS: METHYLPREDNISOLONE SOD SUCC 40 MG/ML VIAL IV SCH ×2 (09:01→16:34)
[2019-03-13] MEDS: BUDESONIDE 0.5MG/2ML NEB HHN SCH ×2 (09:24→21:30)
[2019-03-13] MEDS ORDERED: LACTULOSE 20G/30ML UDC PO PRN (10:30)
[2019-03-13 11:42] LABS: PLATELET ESTIMATE NORMAL
[2019-03-13 12:00] VITALS: BP 109/70
[2019-03-13] MEDS: POLYETHYLENE GLYCOL 3350 (17GM) 1 DOSE PACK PO SCH (13:36)
[2019-03-13 16:00] VITALS: BP 127/64
[2019-03-13 20:31] VITALS: BP 119/68
[2019-03-14] MEDS: METHYLPREDNISOLONE SOD SUCC 40 MG/ML VIAL IV SCH ×2 (00:32→09:39)
[2019-03-14 00:38] VITALS: BP 118/71
[2019-03-14] MEDS: IPRATROPIUM/ALBUTEROL 0.5-3(2.5)MG/3ML NEB NEB SCH ×2 (01:54→08:39)
[2019-03-14] MEDS: GUAIFENESIN 200MG/10ML SUGAR FREE UDC PO PRN (02:38)
[2019-03-14 04:00] VITALS: BP 126/71
[2019-03-14] MEDS ORDERED: LEVOFLOXACIN 250MG PREMIX 50 ML IV SCH (06:00)
[2019-03-14 08:00] VITALS: BP 107/60
[2019-03-14] MEDS: BUDESONIDE 0.5MG/2ML NEB HHN SCH (08:39)
[2019-03-14] MEDS: ENOXAPARIN 30MG/0.3ML SYR SUBCUT SCH ×2 (09:00→09:41)
[2019-03-14] MEDS: NICOTINE 14MG PATCH TD SCH ×2 (09:00→09:46)
[2019-03-14] MEDS: POLYETHYLENE GLYCOL 3350 (17GM) 1 DOSE PACK PO SCH (09:00)
[2019-03-14] MEDS: AMLODIPINE 10MG TABLET PO SCH (09:00)
[2019-03-14] MEDS: GUAIFENESIN 600MG ER TABLET PO SCH (09:41)
[2019-03-14 10:41] VITALS: BP 107/60
== END 2019-03-14 11:25 | disposition home or self-care (01) | DRG 189 ==
LOC: ER 21:14 → 6WST 03-12 00:41 → SUPCPDRO 03-12 03:16 → ENRESERV 03-12 07:00
PROVIDERS: ADMIT Hospitalist; ATTEND Hospitalist
DX: J96.20 Acute and chronic respiratory failure, unspecified whether with hypoxia or hypercapnia (principal); J44.1 Chronic obstructive pulmonary disease with (acute) exacerbation; F17.210 Nicotine dependence, cigarettes, uncomplicated; E11.9 Type 2 diabetes mellitus without complications; I10 Essential (primary) hypertension; K59.00 Constipation, unspecified; Z79.82 Long term (current) use of aspirin; Z88.8 Allergy status to other drugs, medicaments and biological substances; Z79.899 Other long term (current) drug therapy; Z99.81 Dependence on supplemental oxygen; Z88.5 Allergy status to narcotic agent; Z91.19 Patient's noncompliance with other medical treatment and regimen; Z86.73 Personal history of transient ischemic attack (TIA), and cerebral infarction without residual deficits; Z82.49 Family history of ischemic heart disease and other diseases of the circulatory system; Z71.89 Other specified counseling
CPT/HCPCS: 36415; 36600; 71045; 82375; 82805; 83880; 84484; 93005; 94640; 96365; 99285; J1650; J1956; J2060; J2270; J2920; J2930; J7611; J7620; J7626

== ENCOUNTER 2019-03-23 09:17 | Inpatient (IN) | payer MEDICARE, MEDICAID ==
[~2019-03-23] VITALS: Ht 162.6 cm; Wt 31.0 kg
[~2019-03-23 09:17] MED LIST changes: +PRED2.5T4 PO
[2019-03-23] MEDS ORDERED: METHYLPREDNISOLONE SOD SUCC 125 MG/2 ML VIAL IV STA (10:27)
[2019-03-23] MEDS ORDERED: ALBUTEROL (0.083%) 2.5MG/3ML NEB HHN STA (10:27)
[2019-03-23] MEDS ORDERED: IPRATROPIUM BROMIDE (0.02%) 0.5MG/2.5ML NEB HHN STA (10:27)
[2019-03-23 10:38] LABS: EOSINOPHILS % 1.2 % (0.0-5.0); HEMATOCRIT. 40.5 % (36.0-48.0); HEMOGLOBIN. 12.7 g/dL (12.0-16.0); LYMPHOCYTES % 12.4 % (20.0-50.0); MEAN CORPUSCULAR HEMOGLOBIN 25.9 pg (28.0-32.0); MEAN CORPUSCULAR VOLUME 82.4 fL (81.0-99.0); MEAN PLATELET VOLUME 6.8 fl (7.4-10.4); MONOCYTES % 5.7 % (2.0-8.0); NEUTROPHILS % 79.7 % (40.0-76.0); PLATELET 367 x1000/uL (130-400); RED BLOOD CELL COUNT 4.92 mill/uL (4.2-5.4); RED CELL DISTRIBUTION WIDTH 17.1 % (11.6-14.6)
[2019-03-23 10:49] LABS: CHLORIDE 96 mEq/L (98-107)
[2019-03-23] MEDS ORDERED: NA PHOS,M-B/NA PHOS,DI-BA ENEMA 118ML PR PRN (12:15)
[2019-03-23] MEDS ORDERED: CLONIDINE 0.1MG TABLET PO PRN (12:15)
[2019-03-23] MEDS ORDERED: DOCUSATE SODIUM 100MG CAPSULE PO PRN (12:15)
[2019-03-23] MEDS ORDERED: MAGNESIUM/ALUMINUM HYDROXIDE/SIMETHICONE 30ML UDC PO PRN (12:15)
[2019-03-23] MEDS ORDERED: ONDANSETRON HCL 4MG/2ML INJ IV PRN (12:15)
[2019-03-23] MEDS ORDERED: GUAIFENESIN 200MG/10ML SUGAR FREE UDC PO PRN (12:15)
[2019-03-23] MEDS ORDERED: ACETAMINOPHEN 325MG TABLET PO PRN (12:15)
[2019-03-23] MEDS ORDERED: ENOXAPARIN 40MG/0.4ML SYR SUBCUT SCH (12:15)
[2019-03-23] MEDS ORDERED: HYDROCODONE/ACETAMINOPHEN 5/325MG TABLET PO PRN (12:15)
[2019-03-23 13:35] VITALS: BP 143/85
[2019-03-23] MEDS: ENOXAPARIN 30MG/0.3ML SYR SUBCUT SCH ×2 (14:00→14:34)
[2019-03-23] MEDS: AMLODIPINE 10MG TABLET PO SCH ×2 (14:00→14:35)
[2019-03-23] MEDS: METHYLPREDNISOLONE SOD SUCC 125 MG/2 ML VIAL IV SCH ×2 (14:35→18:48)
[2019-03-23] MEDS ORDERED: LEVOFLOXACIN 500MG PREMIX 100 ML IV NR (15:00)
[2019-03-23 16:00] VITALS: BP 157/90
[2019-03-23] MEDS: IPRATROPIUM/ALBUTEROL 0.5-3(2.5)MG/3ML NEB NEB SCH ×2 (16:18→21:00)
[2019-03-23 18:11] VITALS: BP 144/77
[2019-03-23 20:00] VITALS: BP 145/86
[2019-03-23] MEDS: MORPHINE SULFATE 2 MG/ML CPJ (NOT FOR IM USE) IV PRN (20:54)
[2019-03-24] VITALS: BP 150/93
[2019-03-24] MEDS: MORPHINE SULFATE 2 MG/ML CPJ (NOT FOR IM USE) IV PRN ×4 (00:55→23:15)
[2019-03-24] MEDS: METHYLPREDNISOLONE SOD SUCC 125 MG/2 ML VIAL IV SCH ×2 (00:56→07:04)
[2019-03-24] MEDS: IPRATROPIUM/ALBUTEROL 0.5-3(2.5)MG/3ML NEB NEB SCH ×5 (01:52→21:00)
[2019-03-24 04:00] VITALS: BP 145/84
[2019-03-24 07:00] LABS: HEMATOCRIT. 38.1 % (36.0-48.0); MEAN CORPUSCULAR HEMOGLOBIN 25.9 pg (28.0-32.0); MEAN CORPUSCULAR VOLUME 81.8 fL (81.0-99.0); PLATELET 374 x1000/uL (130-400); RED BLOOD CELL COUNT 4.65 mill/uL (4.2-5.4); RED CELL DISTRIBUTION WIDTH 16.7 % (11.6-14.6)
[2019-03-24 08:00] VITALS: BP 139/85
[2019-03-24] MEDS: AMLODIPINE 10MG TABLET PO SCH (08:15)
[2019-03-24] MEDS: ENOXAPARIN 30MG/0.3ML SYR SUBCUT SCH (08:15)
[2019-03-24 08:36] LABS: CHLORIDE 95 mEq/L (98-107)
[2019-03-24 10:25] LABS: PLATELET ESTIMATE NORMAL
[2019-03-24] MEDS: METHYLPREDNISOLONE SOD SUCC 40 MG/ML VIAL IV SCH ×3 (11:37→23:06)
[2019-03-24 11:48] LABS: BG BASE EXCESS 8.6 mmol/L (-2.0-2.0); BG CARBOXYHEMOGLOBIN 0.6 % (0.5-1.5); BG DEOXYHEMOGLOBIN 3.1 % (0.0-5.0); BG FRACTION INSPIRED OXYGEN 32; BG HCO3 ACT 35.1 mmol/L (22.0-26.0); BG METHEMOGLOBIN 0.1 % (0.0-1.5); BG OXYGEN SATURATION 96.9 % (92.0-98.5); BG OXYHEMOGLOBIN 96.2 % (94.0-97.0); BG PCO2 56.9 mmHg (35.0-45.0); BG PH 7.408 (7.350-7.450); BG PO2 86.7 mmHg (75.0-100.0); BG SAMPLE SITE LEFT RADIAL; BG TOTAL HEMOGLOBIN 12.7 g/dL (12.0-18.0); BG VENT MODE NASAL CANNULA
[2019-03-24 12:00] VITALS: BP 134/72
[2019-03-24] MEDS ORDERED: THROAT LOZENGES-BENZOCAINE/MENTH/CETYLPYRD CL LOZENGES MM PRN (12:30)
[2019-03-24] MEDS ORDERED: LEVOFLOXACIN 250MG PREMIX 50 ML IV SCH (14:00)
[2019-03-24 16:00] VITALS: BP 135/74
[2019-03-24] MEDS: IPRATROPIUM/ALBUTEROL 0.5-3(2.5)MG/3ML NEB NEB PRN (17:20)
[2019-03-24 20:00] VITALS: BP 135/78
[2019-03-25] VITALS: BP 128/69
[2019-03-25 04:00] VITALS: BP 125/73
[2019-03-25] MEDS: METHYLPREDNISOLONE SOD SUCC 40 MG/ML VIAL IV SCH (06:26)
[2019-03-25] MEDS: IPRATROPIUM/ALBUTEROL 0.5-3(2.5)MG/3ML NEB NEB SCH (07:24)
[2019-03-25 08:00] VITALS: BP 121/75
[2019-03-25] MEDS: ENOXAPARIN 30MG/0.3ML SYR SUBCUT SCH (08:29)
[2019-03-25] MEDS: AMLODIPINE 10MG TABLET PO SCH (08:31)
[2019-03-25] MEDS: IPRATROPIUM/ALBUTEROL 0.5-3(2.5)MG/3ML NEB NEB PRN (10:24)
[2019-03-25 10:37] VITALS: BP 121/75
== END 2019-03-25 12:59 | disposition home or self-care (01) | DRG 191 ==
LOC: ER 09:17 → 8WST 12:00 → EDBEDREQ 12:05 → SUPCPDRO 12:12 → ENRESERV 12:14
PROVIDERS: ADMIT Hospitalist; ATTEND Hospitalist
DX: J44.1 Chronic obstructive pulmonary disease with (acute) exacerbation (principal); E44.0 Moderate protein-calorie malnutrition; Z68.1 Body mass index [BMI] 19.9 or less, adult; I10 Essential (primary) hypertension; F17.210 Nicotine dependence, cigarettes, uncomplicated; Z82.49 Family history of ischemic heart disease and other diseases of the circulatory system; Z86.73 Personal history of transient ischemic attack (TIA), and cerebral infarction without residual deficits; Z88.5 Allergy status to narcotic agent; Z88.8 Allergy status to other drugs, medicaments and biological substances; Z79.82 Long term (current) use of aspirin; I25.2 Old myocardial infarction; Z85.9 Personal history of malignant neoplasm, unspecified
CPT/HCPCS: 36415; 36600; 71045; 82375; 82805; 83880; 84484; 93005; 94640; 99285; J1650; J1956; J2270; J2920; J2930; J7040; J7611; J7620

== ENCOUNTER 2020-02-06 18:36 | Emergency (ER) | payer MEDICARE, MEDICAID ==
[~2020-02-06] VITALS: Ht 172.7 cm; Wt 57.0 kg
[~2020-02-06 18:36] MED LIST changes: -ASPI-1393 PO; +ASPI-1497 PO; -LAMO200T PO; +LAMO200T9 PO
[2020-02-06] MEDS ORDERED: MORPHINE SULFATE 4 MG/ML CPJ (NOT FOR IM USE) IV STA (19:07)
[2020-02-06] MEDS ORDERED: SODIUM CHLORIDE 0.9% 1000ML BAG (SEPSIS BOLUS) IV ONE (19:15)
[2020-02-06] MEDS ORDERED: CEFTRIAXONE 1 G PREMIX 50 ML IV ONE (19:15)
[2020-02-06 20:21] LABS: BASOPHILS % 0.6 % (0.0-2.0); EOSINOPHILS % 0.7 % (0.0-5.0); HEMATOCRIT. 35.3 % (36.0-48.0); LYMPHOCYTES % 17.2 % (20.0-50.0); MEAN CORPUSCULAR HEMOGLOBIN 26.9 pg (28.0-32.0); MEAN CORPUSCULAR VOLUME 86.7 fL (81.0-99.0); MEAN PLATELET VOLUME 6.3 fl (7.4-10.4); MONOCYTES % 6.2 % (2.0-8.0); NEUTROPHILS % 75.3 % (40.0-76.0); PLATELET 354 x1000/uL (130-400); RED BLOOD CELL COUNT 4.07 mill/uL (4.2-5.4); RED CELL DISTRIBUTION WIDTH 17.7 % (11.6-14.6)
[2020-02-06 20:24] LABS: CLARITY URINE CLEAR (CLEAR); COLOR URINE YELLOW (YELLOW); KETONES URINE NEGATIVE (NEGATIVE); LEUKOCYTE ESTERASE URINE NEGATIVE (NEGATIVE); NITRITE URINE NEGATIVE (NEGATIVE); OCCULT BLOOD URINE NEGATIVE (NEGATIVE); PROTEIN URINE NEGATIVE (NEGATIVE); SPECIFIC GRAVITY URINE 1.013 (1.005-1.030); UROBILINOGEN URINE 0.2 E.U./dL (0.2-1.0)
[2020-02-06 20:33] LABS: CHLORIDE 100 mEq/L (98-107)
[2020-02-06 20:34] LABS: INR 0.9; PROTHROMBIN TIME 9.7 sec (9.6-11.0)
[2020-02-06] MEDS ORDERED: MORPHINE SULFATE 4 MG/ML CPJ (NOT FOR IM USE) IV ONE (22:30)
[2020-02-06 23:15] VITALS: BP 175/86
== END 2020-02-06 23:15 | disposition home or self-care (01) ==
LOC: ER 18:36 → CANBEDREQ 02-07 01:39
DX: R10.32 Left lower quadrant pain (principal); J44.9 Chronic obstructive pulmonary disease, unspecified; I10 Essential (primary) hypertension; I25.2 Old myocardial infarction; Z86.73 Personal history of transient ischemic attack (TIA), and cerebral infarction without residual deficits; Z79.82 Long term (current) use of aspirin; Z79.899 Other long term (current) drug therapy; Z88.5 Allergy status to narcotic agent
CPT/HCPCS: 36415; 74176; 80053; 81003; 83605; 83880; 84145; 84484; 85025; 85610; 87040; 87086; 93005; 96365; 96366; 96375; 96376; 99285; J0696; J2270; J7030

== ENCOUNTER 2020-02-17 15:03 | Inpatient (IN) | payer MEDICARE, MEDICAID ==
[~2020-02-17] VITALS: Ht 167.6 cm; Wt 55.3 kg
[2020-02-17] MEDS ORDERED: ALBUTEROL (0.083%) 2.5MG/3ML NEB HHN STA (15:54)
[2020-02-17] MEDS ORDERED: METHYLPREDNISOLONE SOD SUCC 125 MG/2 ML VIAL IV STA (15:54)
[2020-02-17] MEDS ORDERED: IPRATROPIUM BROMIDE (0.02%) 0.5MG/2.5ML NEB HHN STA (15:54)
[2020-02-17] MEDS ORDERED: AZITHROMYCIN 500 MG in DEXT 5% WATER 250 ML IV SCH (16:00)
[2020-02-17] MEDS ORDERED: CEFTRIAXONE 1 G PREMIX 50 ML IV ONE (16:00)
[2020-02-17 16:30] LABS: BASOPHILS % 0.8 % (0.0-2.0); EOSINOPHILS % 0.6 % (0.0-5.0); HEMATOCRIT. 34.4 % (36.0-48.0); HEMOGLOBIN. 10.8 g/dL (12.0-16.0); LYMPHOCYTES % 14.1 % (20.0-50.0); MEAN CORPUSCULAR HEMOGLOBIN 26.9 pg (28.0-32.0); MEAN CORPUSCULAR VOLUME 85.9 fL (81.0-99.0); MEAN PLATELET VOLUME 6.2 fl (7.4-10.4); MONOCYTES % 4.2 % (2.0-8.0); NEUTROPHILS % 80.3 % (40.0-76.0); PLATELET 307 x1000/uL (130-400)
[2020-02-17 16:36] LABS: CHLORIDE 101 mEq/L (98-107)
[2020-02-17] MEDS ORDERED: ACETAMINOPHEN 325MG TABLET PO ONE (16:45)
[2020-02-17] MEDS ORDERED: MORPHINE SULFATE 2 MG/ML CPJ (NOT FOR IM USE) IV ONE ×2 (17:00→18:45)
[2020-02-17 17:37] LABS: BG BASE EXCESS 6.2 mmol/L (-2.0-2.0); BG CARBOXYHEMOGLOBIN 0.5 % (0.5-1.5); BG DEOXYHEMOGLOBIN 1.8 % (0.0-5.0); BG FRACTION INSPIRED OXYGEN 28; BG HCO3 ACT 32.6 mmol/L (22.0-26.0); BG METHEMOGLOBIN 0.2 % (0.0-1.5); BG OXYGEN SATURATION 98.2 % (92.0-98.5); BG OXYHEMOGLOBIN 97.5 % (94.0-97.0); BG PH 7.383 (7.350-7.450); BG PO2 105.9 mmHg (75.0-100.0); BG SAMPLE SITE RIGHT RADIAL; BG TOTAL HEMOGLOBIN 11.9 g/dL (12.0-18.0); BG VENT MODE NASAL CANNULA
[2020-02-17] MEDS ORDERED: ONDANSETRON HCL 4MG/2ML INJ IV ONE (21:30)
[2020-02-17] MEDS ORDERED: MAGNESIUM/ALUMINUM HYDROXIDE/SIMETHICONE 30ML UDC PO PRN (23:00)
[2020-02-17] MEDS ORDERED: DOCUSATE SODIUM 100MG CAPSULE PO PRN (23:00)
[2020-02-17] MEDS ORDERED: CLONIDINE 0.1MG TABLET PO PRN (23:00)
[2020-02-17 23:40] VITALS: BP 122/69
[2020-02-18 00:06] VITALS: BP 122/69
[2020-02-18] MEDS: HYDROCODONE/ACETAMINOPHEN 5/325MG TABLET PO PRN ×2 (00:44→13:49)
[2020-02-18] MEDS ORDERED: LEVOFLOXACIN 500MG PREMIX 100 ML IV SCH (01:00)
[2020-02-18 04:00] VITALS: BP 108/57
[2020-02-18] MEDS: ACETAMINOPHEN 325MG TABLET PO PRN ×3 (04:20→23:42)
[2020-02-18 05:49] LABS: BASOPHILS % 0.2 % (0.0-2.0); HEMATOCRIT. 30.6 % (36.0-48.0); HEMOGLOBIN. 9.8 g/dL (12.0-16.0); LYMPHOCYTES % 10.6 % (20.0-50.0); MEAN CORPUSCULAR HEMOGLOBIN 27.4 pg (28.0-32.0); MEAN CORPUSCULAR VOLUME 86.1 fL (81.0-99.0); MEAN PLATELET VOLUME 6.4 fl (7.4-10.4); MONOCYTES % 2.8 % (2.0-8.0); NEUTROPHILS % 86.4 % (40.0-76.0); PLATELET 289 x1000/uL (130-400); RED BLOOD CELL COUNT 3.56 mill/uL (4.2-5.4); RED CELL DISTRIBUTION WIDTH 17.1 % (11.6-14.6)
[2020-02-18 06:07] LABS: CHLORIDE 103 mEq/L (98-107)
[2020-02-18 08:00] VITALS: BP 132/70
[2020-02-18 08:25] LABS: BG BASE EXCESS 6.5 mmol/L (-2.0-2.0); BG CARBOXYHEMOGLOBIN 0.3 % (0.5-1.5); BG FRACTION INSPIRED OXYGEN 32; BG HCO3 ACT 32.6 mmol/L (22.0-26.0); BG OXYHEMOGLOBIN 98.7 % (94.0-97.0); BG PCO2 54.3 mmHg (35.0-45.0); BG PH 7.396 (7.350-7.450); BG PO2 147.1 mmHg (75.0-100.0); BG SAMPLE SITE RIGHT RADIAL; BG TOTAL HEMOGLOBIN 10.7 g/dL (12.0-18.0); BG VENT MODE NASAL CANNULA
[2020-02-18] MEDS: AMLODIPINE 10MG TABLET PO SCH (08:57)
[2020-02-18] MEDS: ENOXAPARIN 30MG/0.3ML SYR SUBCUT SCH ×2 (08:57→09:00)
[2020-02-18] MEDS: IPRATROPIUM/ALBUTEROL 0.5-3(2.5)MG/3ML NEB NEB SCH ×4 (09:08→21:29)
[2020-02-18] MEDS ORDERED: TRAMADOL 50MG TABLET PO PRN (10:00)
[2020-02-18] MEDS: ONDANSETRON HCL 4MG/2ML INJ IV PRN ×2 (10:12→16:16)
[2020-02-18] MEDS: GABAPENTIN 300MG CAPSULE PO SCH ×3 (10:12→16:17)
[2020-02-18] MEDS: LAMOTRIGINE 100MG TABLET PO SCH ×2 (10:14→22:34)
[2020-02-18] MEDS: METHYLPREDNISOLONE SOD SUCC 40 MG/ML VIAL IV SCH ×2 (10:14→17:26)
[2020-02-18 12:00] VITALS: BP 143/74
[2020-02-18 16:00] VITALS: BP 141/74
[2020-02-18] MEDS: KETOROLAC 30MG/ML VIAL IV PRN (16:27)
[2020-02-18 20:00] VITALS: BP 136/68
[2020-02-18] MEDS: LEVOFLOXACIN 250MG PREMIX 50 ML IV SCH (22:33)
[2020-02-18] MEDS: DIAZEPAM 5 MG TABLET PO SCH (22:34)
[2020-02-19] VITALS: BP 125/77
[2020-02-19] MEDS: IPRATROPIUM/ALBUTEROL 0.5-3(2.5)MG/3ML NEB NEB SCH ×6 (00:54→22:54)
[2020-02-19] MEDS: METHYLPREDNISOLONE SOD SUCC 40 MG/ML VIAL IV SCH ×3 (02:59→17:04)
[2020-02-19 04:00] VITALS: BP 103/55
[2020-02-19 08:00] VITALS: BP 125/72
[2020-02-19] MEDS: ENOXAPARIN 30MG/0.3ML SYR SUBCUT SCH ×2 (09:00→09:02)
[2020-02-19] MEDS: AMLODIPINE 10MG TABLET PO SCH (09:02)
[2020-02-19] MEDS: GABAPENTIN 300MG CAPSULE PO SCH ×3 (09:02→17:04)
[2020-02-19] MEDS: LAMOTRIGINE 100MG TABLET PO SCH ×2 (09:02→21:49)
[2020-02-19] MEDS: ACETAMINOPHEN 325MG TABLET PO PRN ×2 (11:52→23:46)
[2020-02-19 12:00] VITALS: BP 166/94
[2020-02-19] MEDS: KETOROLAC 30MG/ML VIAL IV PRN (12:51)
[2020-02-19] MEDS: IPRATROPIUM/ALBUTEROL 0.5-3(2.5)MG/3ML NEB NEB PRN (14:41)
[2020-02-19 16:00] VITALS: BP 126/69
[2020-02-19] MEDS: ISOSORBIDE MONONITRATE 30MG TABLET SR 24HR PO SCH (18:36)
[2020-02-19 20:00] VITALS: BP 114/63
[2020-02-19] MEDS: LEVOFLOXACIN 250MG PREMIX 50 ML IV SCH (21:48)
[2020-02-19] MEDS: DIAZEPAM 5 MG TABLET PO SCH (21:49)
[2020-02-20] VITALS: BP 123/70
[2020-02-20] MEDS: KETOROLAC 30MG/ML VIAL IV PRN ×2 (01:41→09:16)
[2020-02-20] MEDS: METHYLPREDNISOLONE SOD SUCC 40 MG/ML VIAL IV SCH ×3 (02:59→17:10)
[2020-02-20 04:00] VITALS: BP 116/62
[2020-02-20 08:00] VITALS: BP 126/72
[2020-02-20] MEDS: ENOXAPARIN 30MG/0.3ML SYR SUBCUT SCH (09:00)
[2020-02-20] MEDS: LAMOTRIGINE 100MG TABLET PO SCH ×2 (09:15→21:48)
[2020-02-20] MEDS: ISOSORBIDE MONONITRATE 30MG TABLET SR 24HR PO SCH (09:15)
[2020-02-20] MEDS: GABAPENTIN 300MG CAPSULE PO SCH ×3 (09:15→17:10)
[2020-02-20] MEDS: AMLODIPINE 10MG TABLET PO SCH (09:15)
[2020-02-20] MEDS: IPRATROPIUM/ALBUTEROL 0.5-3(2.5)MG/3ML NEB NEB SCH ×3 (09:30→20:29)
[2020-02-20] MEDS: ONDANSETRON HCL 4MG/2ML INJ IV PRN (10:23)
[2020-02-20] MEDS: ACETAMINOPHEN 325MG TABLET PO PRN ×2 (11:01→17:10)
[2020-02-20 11:31] LABS: BASOPHILS % 0.1 % (0.0-2.0); HEMOGLOBIN. 10.4 g/dL (12.0-16.0); LYMPHOCYTES % 8.9 % (20.0-50.0); MEAN CORPUSCULAR VOLUME 85.8 fL (81.0-99.0); MEAN PLATELET VOLUME 6.1 fl (7.4-10.4); MONOCYTES % 1.6 % (2.0-8.0); NEUTROPHILS % 89.4 % (40.0-76.0); PLATELET 311 x1000/uL (130-400); RED BLOOD CELL COUNT 3.85 mill/uL (4.2-5.4); RED CELL DISTRIBUTION WIDTH 17.3 % (11.6-14.6)
[2020-02-20 11:46] LABS: CHLORIDE 97 mEq/L (98-107)
[2020-02-20 12:00] VITALS: BP 122/52
[2020-02-20] MEDS: HYDROCODONE/ACETAMINOPHEN 5/325MG TABLET PO PRN (13:34)
[2020-02-20 16:00] VITALS: BP 124/68
[2020-02-20 20:00] VITALS: BP 120/68
[2020-02-20] MEDS: DIAZEPAM 5 MG TABLET PO SCH (21:48)
[2020-02-20] MEDS: LEVOFLOXACIN 250MG PREMIX 50 ML IV SCH (21:48)
[2020-02-21] VITALS: BP 127/68
[2020-02-21] MEDS: METHYLPREDNISOLONE SOD SUCC 40 MG/ML VIAL IV SCH ×2 (01:04→09:20)
[2020-02-21] MEDS: IPRATROPIUM/ALBUTEROL 0.5-3(2.5)MG/3ML NEB NEB SCH ×3 (01:38→13:26)
[2020-02-21 04:00] VITALS: BP 129/64
[2020-02-21] MEDS: ACETAMINOPHEN 325MG TABLET PO PRN ×2 (05:43→11:52)
[2020-02-21 08:00] VITALS: BP 150/87
[2020-02-21] MEDS: IPRATROPIUM/ALBUTEROL 0.5-3(2.5)MG/3ML NEB NEB PRN (08:18)
[2020-02-21] MEDS: ENOXAPARIN 30MG/0.3ML SYR SUBCUT SCH (09:00)
[2020-02-21] MEDS: LAMOTRIGINE 100MG TABLET PO SCH (09:18)
[2020-02-21] MEDS: ISOSORBIDE MONONITRATE 30MG TABLET SR 24HR PO SCH (09:18)
[2020-02-21] MEDS: GABAPENTIN 300MG CAPSULE PO SCH ×2 (09:18→14:11)
[2020-02-21] MEDS: AMLODIPINE 10MG TABLET PO SCH (09:19)
[2020-02-21 12:00] VITALS: BP 152/86
[2020-02-21 12:25] VITALS: BP 152/86
[2020-02-21] MEDS ORDERED: TERBUTALINE SULFATE 1MG/ML VIAL SUBCUT NR (13:00)
[2020-02-21] MEDS ORDERED: THEOPHYLLINE ANHYDROUS 80 MG/15 ML 120ML PO SCH (14:00)
[2020-02-21] MEDS ORDERED: PREDNISONE 20MG TABLET PO SCH (17:15)
[2020-02-21] MEDS ORDERED: LEVOFLOXACIN 250MG TABLET PO SCH (20:00)
== END 2020-02-21 14:59 | disposition home or self-care (01) | DRG 193 ==
LOC: ER 15:03 → 5WST 21:04 → EDBEDREQTM 21:06 → EDBEDREQ 21:06 → ENRESERV 22:28
PROVIDERS: ADMIT Hospitalist; ATTEND Hospitalist
DX: J18.9 Pneumonia, unspecified organism (principal); J96.00 Acute respiratory failure, unspecified whether with hypoxia or hypercapnia; J44.1 Chronic obstructive pulmonary disease with (acute) exacerbation; J44.0 Chronic obstructive pulmonary disease with (acute) lower respiratory infection; J68.0 Bronchitis and pneumonitis due to chemicals, gases, fumes and vapors; I25.10 Atherosclerotic heart disease of native coronary artery without angina pectoris; I10 Essential (primary) hypertension; G40.909 Epilepsy, unspecified, not intractable, without status epilepticus; F41.9 Anxiety disorder, unspecified; F10.10 Alcohol abuse, uncomplicated; Y90.9 Presence of alcohol in blood, level not specified; Z86.73 Personal history of transient ischemic attack (TIA), and cerebral infarction without residual deficits; Z85.118 Personal history of other malignant neoplasm of bronchus and lung; Z99.81 Dependence on supplemental oxygen; Z88.5 Allergy status to narcotic agent; Z79.899 Other long term (current) drug therapy; Z87.891 Personal history of nicotine dependence
CPT/HCPCS: 36415; 36600; 71045; 80048; 80053; 82375; 82805; 83880; 84484; 85025; 93005; 93306; 94640; 99285; J0456; J0696; J1650; J1885; J1956; J2270; J2405; J2920; J2930; J3105; J7060

== ENCOUNTER 2020-03-21 10:52 | Inpatient (IN) | payer MEDICARE, MEDICAID ==
[~2020-03-21] VITALS: Ht 175.3 cm; Wt 57.6 kg
[~2020-03-21 10:52] MED LIST changes: -ASPI-1497 PO; -DIAZ10TA4 PO; -LAMO200T9 PO; -MECL-127 PO; -NITR0.4T49 SL; -PRED2.5T4 PO
[2020-03-21] MEDS ORDERED: MORPHINE SULFATE 4 MG/ML CPJ (NOT FOR IM USE) IV STA (11:18)
[2020-03-21] MEDS ORDERED: ONDANSETRON HCL 4MG/2ML INJ IV STA (11:18)
[2020-03-21 12:57] LABS: BASOPHILS % 0.5 % (0.0-2.0); CHLORIDE 100 mEq/L (98-107); EOSINOPHILS % 0.4 % (0.0-5.0); HEMATOCRIT. 35.3 % (36.0-48.0); HEMOGLOBIN. 10.8 g/dL (12.0-16.0); LYMPHOCYTES % 9.6 % (20.0-50.0); MEAN CORPUSCULAR HEMOGLOBIN 26.1 pg (28.0-32.0); MEAN CORPUSCULAR VOLUME 85.4 fL (81.0-99.0); MEAN PLATELET VOLUME 6.3 fl (7.4-10.4); MONOCYTES % 7.3 % (2.0-8.0); NEUTROPHILS % 82.2 % (40.0-76.0); PLATELET 298 x1000/uL (130-400); RED BLOOD CELL COUNT 4.13 mill/uL (4.2-5.4); RED CELL DISTRIBUTION WIDTH 16.7 % (11.6-14.6)
[2020-03-21 13:10] LABS: COLOR URINE YELLOW (YELLOW); KETONES URINE NEGATIVE (NEGATIVE); LEUKOCYTE ESTERASE URINE NEGATIVE (NEGATIVE); NITRITE URINE NEGATIVE (NEGATIVE); OCCULT BLOOD URINE NEGATIVE (NEGATIVE); PH URINE 5.5 (4.5-8.0); PROTEIN URINE NEGATIVE (NEGATIVE); SPECIFIC GRAVITY URINE 1.022 (1.005-1.030); UROBILINOGEN URINE 0.2 E.U./dL (0.2-1.0)
[2020-03-21 13:12] LABS: CLARITY URINE SL HAZY (CLEAR)
[2020-03-21] MEDS ORDERED: MORPHINE SULFATE 4 MG/ML CPJ (NOT FOR IM USE) IV ONE (13:30)
[2020-03-21] MEDS ORDERED: IPRATROPIUM BROMIDE (0.02%) 0.5MG/2.5ML NEB HHN STA (14:38)
[2020-03-21] MEDS ORDERED: ALBUTEROL (0.083%) 2.5MG/3ML NEB HHN STA (14:38)
[2020-03-21] MEDS ORDERED: TRAMADOL 50MG TABLET PO PRN (16:45)
[2020-03-21] MEDS ORDERED: LORAZEPAM 2MG/ML CPJ IV PRN (16:45)
[2020-03-21] MEDS ORDERED: CLONIDINE 0.1MG TABLET PO PRN (16:45)
[2020-03-21] MEDS ORDERED: ONDANSETRON HCL 4MG/2ML INJ IV PRN (16:45)
[2020-03-21] MEDS ORDERED: DOCUSATE SODIUM 100MG CAPSULE PO PRN (16:45)
[2020-03-21] MEDS ORDERED: MAGNESIUM/ALUMINUM HYDROXIDE/SIMETHICONE 30ML UDC PO PRN (16:45)
[2020-03-21] MEDS ORDERED: IPRATROPIUM/ALBUTEROL 0.5-3(2.5)MG/3ML NEB NEB PRN (16:45)
[2020-03-21] MEDS: ENOXAPARIN 40MG/0.4ML SYR SUBCUT SCH (17:00)
[2020-03-21 21:00] VITALS: BP 151/86
[2020-03-21] MEDS ORDERED: PRED10TA23 PO (22:36)
[2020-03-22] VITALS: BP 128/71
[2020-03-22] MEDS: IPRATROPIUM/ALBUTEROL 0.5-3(2.5)MG/3ML NEB HHN SCH ×4 (00:06→19:13)
[2020-03-22] MEDS: ACETAMINOPHEN 325MG TABLET PO PRN ×2 (00:31→23:58)
[2020-03-22 04:00] VITALS: BP 119/59
[2020-03-22 05:59] LABS: CHLORIDE 100 mEq/L (98-107)
[2020-03-22 06:30] LABS: HEMATOCRIT. 29.9 % (36.0-48.0); HEMOGLOBIN. 9.2 g/dL (12.0-16.0); MEAN CORPUSCULAR HEMOGLOBIN 26.7 pg (28.0-32.0); MEAN CORPUSCULAR VOLUME 86.6 fL (81.0-99.0); MEAN PLATELET VOLUME 6.5 fl (7.4-10.4); PLATELET 271 x1000/uL (130-400); RED BLOOD CELL COUNT 3.46 mill/uL (4.2-5.4); RED CELL DISTRIBUTION WIDTH 16.6 % (11.6-14.6)
[2020-03-22 08:00] VITALS: BP 191/95
[2020-03-22] MEDS: AMLODIPINE 10MG TABLET PO SCH (09:21)
[2020-03-22] MEDS ORDERED: OXYCODONE HCL/ACETAMINOPHEN 5/325MG TABLET PO PRN (10:00)
[2020-03-22] MEDS: GABAPENTIN 300MG CAPSULE PO SCH ×3 (11:59→16:56)
[2020-03-22] MEDS: PREDNISONE 20MG TABLET PO SCH (11:59)
[2020-03-22 12:00] VITALS: BP 126/55
[2020-03-22 16:00] VITALS: BP 116/60
[2020-03-22] MEDS: ENOXAPARIN 40MG/0.4ML SYR SUBCUT SCH (16:56)
[2020-03-22 17:22] LABS: PLATELET ESTIMATE NORMAL
[2020-03-22] MEDS: MORPHINE SULFATE 2 MG/ML CPJ (NOT FOR IM USE) IV PRN ×2 (17:28→22:38)
[2020-03-22 20:00] VITALS: BP 140/80
[2020-03-22] MEDS: LAMOTRIGINE 100MG TABLET PO SCH ×2 (21:27→22:37)
[2020-03-22] MEDS: DIAZEPAM 5 MG TABLET PO SCH ×2 (21:28→22:37)
[2020-03-23] VITALS: BP 118/76
[2020-03-23] MEDS: IPRATROPIUM/ALBUTEROL 0.5-3(2.5)MG/3ML NEB HHN SCH ×5 (03:14→17:08)
[2020-03-23 04:00] VITALS: BP 135/78
[2020-03-23 08:00] VITALS: BP 139/61
[2020-03-23] MEDS: PREDNISONE 20MG TABLET PO SCH (09:38)
[2020-03-23] MEDS: GABAPENTIN 300MG CAPSULE PO SCH ×3 (09:38→19:14)
[2020-03-23] MEDS: AMLODIPINE 10MG TABLET PO SCH (09:39)
[2020-03-23 12:00] VITALS: BP 152/82
[2020-03-23] MEDS: LAMOTRIGINE 100MG TABLET PO SCH (12:21)
[2020-03-23] MEDS: ENOXAPARIN 40MG/0.4ML SYR SUBCUT SCH (19:15)
[2020-03-23 19:48] VITALS: BP 159/80
[2020-03-23 20:00] VITALS: BP 164/80
== END 2020-03-23 20:27 | disposition home health service (06) | DRG 553 ==
LOC: ER 10:52 → 5WST 16:17 → EDBEDREQ 16:25 → EDBEDREQTM 16:25 → EDBEDREQSVC 18:31 → EDBEDREQ 18:35 → ENRESERV 19:35
PROVIDERS: ADMIT Hospitalist; ATTEND Hospitalist
DX: M19.011 Primary osteoarthritis, right shoulder (principal); J96.20 Acute and chronic respiratory failure, unspecified whether with hypoxia or hypercapnia; J44.1 Chronic obstructive pulmonary disease with (acute) exacerbation; G89.4 Chronic pain syndrome; G40.909 Epilepsy, unspecified, not intractable, without status epilepticus; R53.1 Weakness; F41.9 Anxiety disorder, unspecified; I10 Essential (primary) hypertension; I25.2 Old myocardial infarction; Z87.891 Personal history of nicotine dependence; Z86.73 Personal history of transient ischemic attack (TIA), and cerebral infarction without residual deficits; Z79.899 Other long term (current) drug therapy
CPT/HCPCS: 36415; 71045; 73030; 80053; 81003; 82962; 83880; 84484; 85025; 93005; 93970; 94640; 96374; 99285; J1650; J2270; J2405; J7512

== ENCOUNTER 2020-03-26 22:44 | Inpatient (IN) | payer MEDICARE, MEDICAID ==
[~2020-03-26] VITALS: Ht 167.6 cm; Wt 53.5 kg
[~2020-03-26 22:44] MED LIST changes: -DIPH1TAB MT; +PRED10TA23 PO; -TRAM50TA3 PO
[2020-03-26] MEDS ORDERED: MORPHINE SULFATE 2 MG/ML CPJ (NOT FOR IM USE) IV ONE (23:45)
[2020-03-27 00:10] LABS: HEMATOCRIT. 33.5 % (36.0-48.0); HEMOGLOBIN. 10.4 g/dL (12.0-16.0); MEAN CORPUSCULAR HEMOGLOBIN 26.6 pg (28.0-32.0); MEAN PLATELET VOLUME 6.2 fl (7.4-10.4); PLATELET 381 x1000/uL (130-400); RED CELL DISTRIBUTION WIDTH 16.7 % (11.6-14.6)
[2020-03-27 00:15] LABS: CHLORIDE 96 mEq/L (98-107)
[2020-03-27] MEDS ORDERED: SODIUM CHLORIDE 0.9% 500 ML IV NR (01:00)
[2020-03-27] MEDS ORDERED: ASPIRIN 325MG EC TABLET PO NR (01:00)
[2020-03-27] MEDS ORDERED: OXYCODONE HCL/ACETAMINOPHEN 5/325MG TABLET PO ONE (01:00)
[2020-03-27] MEDS ORDERED: MORPHINE SULFATE 2 MG/ML CPJ (NOT FOR IM USE) IV ONE (03:30)
[2020-03-27 03:36] LABS: NUCLEATED RED BLOOD CELLS 1 /100 WBC
[2020-03-27 03:37] LABS: PLATELET ESTIMATE NORMAL
[2020-03-27] MEDS ORDERED: ENOXAPARIN 40MG/0.4ML SYR SUBCUT SCH (10:00)
[2020-03-27] MEDS: ACETAMINOPHEN 325MG TABLET PO PRN (12:56)
[2020-03-27 15:00] VITALS: BP 127/53
[2020-03-27 16:00] VITALS: BP 127/53
[2020-03-27 17:42] VITALS: BP 127/53
[2020-03-27 19:39] LABS: CLARITY URINE CLEAR (CLEAR); COLOR URINE YELLOW (YELLOW); KETONES URINE NEGATIVE (NEGATIVE); LEUKOCYTE ESTERASE URINE NEGATIVE (NEGATIVE); NITRITE URINE NEGATIVE (NEGATIVE); OCCULT BLOOD URINE NEGATIVE (NEGATIVE); PH URINE 5.5 (4.5-8.0); PROTEIN URINE NEGATIVE (NEGATIVE); SPECIFIC GRAVITY URINE 1.013 (1.005-1.030); UROBILINOGEN URINE 0.2 E.U./dL (0.2-1.0)
[2020-03-27 19:48] LABS: *AMPHETAMINES SCREEN URINE NEGATIVE (NEGATIVE); *BARBITURATES SCREEN URINE NEGATIVE (NEGATIVE); *BENZODIAZEPINES SCREEN URINE PRESUMTIVE POSITIVE (NEGATIVE); *COCAINE SCREEN URINE NEGATIVE (NEGATIVE); METHADONE URINE SCREEN NEGATIVE (NEGATIVE); OPIATES URINE SCREEN PRESUMTIVE POSITIVE (NEGATIVE)
[2020-03-27 19:49] LABS: CANNABINOID URINE SCREEN NEGATIVE (NEGATIVE); PHENCYCLIDINE URINE SCREEN NEGATIVE (NEGATIVE)
[2020-03-27 20:00] VITALS: BP 126/71
[2020-03-27] MEDS: AMLODIPINE 5MG TABLET PO SCH ×2 (21:28→22:53)
[2020-03-27] MEDS: ATORVASTATIN CALCIUM 20MG TABLET PO SCH ×2 (21:28→22:53)
[2020-03-27] MEDS: OXYCODONE HCL 10MG TABLET SR 12HR PO SCH (21:46)
[2020-03-27] MEDS: DIAZEPAM 5 MG TABLET PO PRN (22:52)
[2020-03-28] VITALS: BP 135/70
[2020-03-28] MEDS: IPRATROPIUM/ALBUTEROL 0.5-3(2.5)MG/3ML NEB HHN PRN ×5 (01:30→21:11)
[2020-03-28 04:00] VITALS: BP 138/81
[2020-03-28] MEDS: ACETAMINOPHEN 325MG TABLET PO PRN (04:49)
[2020-03-28] MEDS: ONDANSETRON HCL 4MG/2ML INJ IV PRN ×3 (04:53→13:07)
[2020-03-28 06:40] LABS: HEMATOCRIT. 30.7 % (36.0-48.0); HEMOGLOBIN. 9.6 g/dL (12.0-16.0); MEAN CORPUSCULAR HEMOGLOBIN 26.7 pg (28.0-32.0); MEAN CORPUSCULAR VOLUME 85.4 fL (81.0-99.0); MEAN PLATELET VOLUME 6.3 fl (7.4-10.4); PLATELET 369 x1000/uL (130-400); RED BLOOD CELL COUNT 3.59 mill/uL (4.2-5.4); RED CELL DISTRIBUTION WIDTH 17.1 % (11.6-14.6)
[2020-03-28 06:51] LABS: CHLORIDE 100 mEq/L (98-107)
[2020-03-28 08:00] VITALS: BP 123/70
[2020-03-28] MEDS: BUDESONIDE 0.5MG/2ML NEB HHN SCH ×2 (08:41→21:11)
[2020-03-28] MEDS ORDERED: ASPIRIN 81MG TABLET PO SCH (09:00)
[2020-03-28] MEDS: AMLODIPINE 5MG TABLET PO SCH ×2 (09:54→21:10)
[2020-03-28] MEDS: OXYCODONE HCL 10MG TABLET SR 12HR PO SCH ×3 (09:54→21:11)
[2020-03-28] MEDS: ENOXAPARIN 40MG/0.4ML SYR SUBCUT SCH ×2 (11:08→12:34)
[2020-03-28] MEDS ORDERED: DOCUSATE SODIUM 250MG CAPSULE PO NR (11:15)
[2020-03-28] MEDS ORDERED: SORBITOL 70% SOLN 30ML PO NR ×2 (11:15→16:00)
[2020-03-28 12:00] VITALS: BP 156/80
[2020-03-28 16:00] VITALS: BP 144/69
[2020-03-28 17:30] LABS: PLATELET ESTIMATE NORMAL
[2020-03-28] MEDS: DIAZEPAM 5 MG TABLET PO PRN (19:15)
[2020-03-28 20:00] VITALS: BP 140/82
[2020-03-28] MEDS: ENOXAPARIN 60MG/0.6ML SYR SUBCUT SCH (21:10)
[2020-03-28] MEDS: ATORVASTATIN CALCIUM 20MG TABLET PO SCH (21:10)
[2020-03-29] VITALS (8 sets, daily range): BP systolic 106–153; BP diastolic 64–83
[2020-03-29] MEDS: IPRATROPIUM/ALBUTEROL 0.5-3(2.5)MG/3ML NEB HHN PRN (03:03)
[2020-03-29] MEDS: OXYCODONE HCL 10MG TABLET SR 12HR PO SCH ×2 (05:17→14:54)
[2020-03-29 06:10] LABS: BASOPHILS % 1.4 % (0.0-2.0); EOSINOPHILS % 1.2 % (0.0-5.0); HEMATOCRIT. 33.7 % (36.0-48.0); HEMOGLOBIN. 10.4 g/dL (12.0-16.0); LYMPHOCYTES % 22.4 % (20.0-50.0); MEAN CORPUSCULAR HEMOGLOBIN 26.3 pg (28.0-32.0); MEAN CORPUSCULAR VOLUME 85.3 fL (81.0-99.0); MEAN PLATELET VOLUME 6.2 fl (7.4-10.4); MONOCYTES % 8.3 % (2.0-8.0); NEUTROPHILS % 66.7 % (40.0-76.0); PLATELET 373 x1000/uL (130-400); RED BLOOD CELL COUNT 3.95 mill/uL (4.2-5.4); RED CELL DISTRIBUTION WIDTH 16.8 % (11.6-14.6)
[2020-03-29 06:15] LABS: CHLORIDE 97 mEq/L (98-107)
[2020-03-29 06:16] LABS: INR 0.9
[2020-03-29 06:24] LABS: TOTAL IRON BINDING CAPACITY 621 ug/dL (250-450)
[2020-03-29] MEDS: ENOXAPARIN 60MG/0.6ML SYR SUBCUT SCH (08:12)
[2020-03-29] MEDS: AMLODIPINE 5MG TABLET PO SCH (08:12)
[2020-03-29] MEDS ORDERED: CEFTRIAXONE 1 G PREMIX 50 ML IV SCH (09:15)
[2020-03-29] MEDS: BUDESONIDE 0.5MG/2ML NEB HHN SCH ×2 (09:20→21:21)
[2020-03-29] MEDS: CEFTRIAXONE 1,000 MG in DEXTROSE 5% WATER 50 ML IV SCH (12:43)
[2020-03-29] MEDS ORDERED: MAGNESIUM CITRATE 300ML SOLUTION PO NR (14:00)
[2020-03-29] MEDS: DILTIAZEM HCL 30MG TABLET PO SCH (18:22)
[2020-03-29] MEDS: DIAZEPAM 5 MG TABLET PO PRN (18:22)
[2020-03-29] MEDS ORDERED: CARVEDILOL 6.25 MG TABLET PO SCH (21:00)
[2020-03-29 22:10] LABS: BG BASE EXCESS 7.7 mmol/L (-2.0-2.0); BG CARBOXYHEMOGLOBIN 0.7 % (0.5-1.5); BG DEOXYHEMOGLOBIN 15.8 % (0.0-5.0); BG FRACTION INSPIRED OXYGEN 40; BG METHEMOGLOBIN 0.2 % (0.0-1.5); BG OXYGEN SATURATION 84.1 % (92.0-98.5); BG OXYHEMOGLOBIN 83.3 % (94.0-97.0); BG PCO2 63.8 mmHg (35.0-45.0); BG PH 7.357 (7.350-7.450); BG PO2 51.3 mmHg (75.0-100.0); BG TOTAL HEMOGLOBIN 11.5 g/dL (12.0-18.0); BG VENT MODE NASAL CANNULA
[2020-03-30] VITALS (12 sets, daily range): BP systolic 108–136; BP diastolic 62–77
[2020-03-30] MEDS: DILTIAZEM HCL 30MG TABLET PO SCH ×3 (05:31→22:36)
[2020-03-30] MEDS: OXYCODONE HCL 10MG TABLET SR 12HR PO SCH ×3 (06:00→22:00)
[2020-03-30] MEDS: BUDESONIDE 0.5MG/2ML NEB HHN SCH ×2 (08:20→08:55)
[2020-03-30] MEDS: ENOXAPARIN 60MG/0.6ML SYR SUBCUT SCH ×2 (09:00→20:16)
[2020-03-30] MEDS: CEFTRIAXONE 1,000 MG in DEXTROSE 5% WATER 50 ML IV SCH (10:26)
[2020-03-30] MEDS: METHYLPREDNISOLONE SOD SUCC 40 MG/ML VIAL IV SCH ×2 (11:08→20:15)
[2020-03-30] MEDS: MAGNESIUM CITRATE 300ML SOLUTION PO NR ×3 (14:00→15:09)
[2020-03-30] MEDS: SODIUM CHLORIDE 0.9% 1,000 ML IV SCH (15:24)
[2020-03-30] MEDS: FAMOTIDINE 20MG TABLET PO SCH (20:15)
[2020-03-30] MEDS: ATORVASTATIN CALCIUM 20MG TABLET PO SCH ×2 (20:15→21:06)
[2020-03-30] MEDS: ACETAMINOPHEN 325MG TABLET PO PRN (20:55)
[2020-03-30] MEDS: ONDANSETRON HCL 4MG/2ML INJ IV PRN (20:56)
[2020-03-31] VITALS (12 sets, daily range): BP systolic 115–147; BP diastolic 64–76
[2020-03-31] MEDS: METHYLPREDNISOLONE SOD SUCC 40 MG/ML VIAL IV SCH ×2 (02:30→10:36)
[2020-03-31] MEDS: OXYCODONE HCL 10MG TABLET SR 12HR PO SCH ×3 (06:00→20:24)
[2020-03-31] MEDS: DILTIAZEM HCL 30MG TABLET PO SCH ×3 (06:10→20:23)
[2020-03-31] MEDS: SODIUM CHLORIDE 0.9% 1,000 ML IV SCH ×2 (08:57→23:15)
[2020-03-31] MEDS: ENOXAPARIN 60MG/0.6ML SYR SUBCUT SCH ×2 (08:57→20:23)
[2020-03-31] MEDS: IPRATROPIUM BROMIDE (0.02%) 0.5MG/2.5ML NEB HHN PRN ×2 (09:15→12:18)
[2020-03-31] MEDS: ACETAMINOPHEN 325MG TABLET PO PRN (10:32)
[2020-03-31] MEDS: CEFTRIAXONE 1,000 MG in DEXTROSE 5% WATER 50 ML IV SCH (10:36)
[2020-03-31] MEDS: ONDANSETRON HCL 4MG/2ML INJ IV PRN ×2 (14:52→22:02)
[2020-03-31] MEDS: DOCUSATE SODIUM 100MG CAPSULE PO SCH (17:50)
[2020-03-31] MEDS: ATORVASTATIN CALCIUM 20MG TABLET PO SCH (20:22)
[2020-03-31] MEDS: FAMOTIDINE 20MG TABLET PO SCH (20:22)
[2020-03-31] MEDS ORDERED: BISACODYL 5MG TABLET PO PRN (21:00)
[2020-03-31] MEDS: DIAZEPAM 5 MG TABLET PO PRN (22:02)
[2020-04-01] VITALS (12 sets, daily range): BP systolic 121–156; BP diastolic 57–88
[2020-04-01] MEDS: OXYCODONE HCL 10MG TABLET SR 12HR PO SCH (05:36)
[2020-04-01] MEDS: DILTIAZEM HCL 30MG TABLET PO SCH ×3 (05:36→22:00)
[2020-04-01] MEDS: DOCUSATE SODIUM 100MG CAPSULE PO SCH ×2 (09:24→17:57)
[2020-04-01] MEDS: PREDNISONE 20MG TABLET PO SCH ×2 (09:24→17:58)
[2020-04-01] MEDS: ENOXAPARIN 60MG/0.6ML SYR SUBCUT SCH ×2 (09:25→20:41)
[2020-04-01] MEDS: CEFTRIAXONE 1,000 MG in DEXTROSE 5% WATER 50 ML IV SCH (10:33)
[2020-04-01 11:48] LABS: BG BASE EXCESS 0.7 mmol/L (-2.0-2.0); BG CARBOXYHEMOGLOBIN 0.3 % (0.5-1.5); BG DEOXYHEMOGLOBIN 5.7 % (0.0-5.0); BG FRACTION INSPIRED OXYGEN 32; BG HCO3 ACT 24.8 mmol/L (22.0-26.0); BG METHEMOGLOBIN 0.3 % (0.0-1.5); BG OXYGEN SATURATION 94.3 % (92.0-98.5); BG OXYHEMOGLOBIN 93.7 % (94.0-97.0); BG PCO2 37.8 mmHg (35.0-45.0); BG PH 7.435 (7.350-7.450); BG PO2 73.5 mmHg (75.0-100.0); BG SAMPLE SITE LEFT RADIAL; BG VENT MODE NASAL CANNULA
[2020-04-01] MEDS: ACETAMINOPHEN 325MG TABLET PO PRN (13:36)
[2020-04-01] MEDS: SODIUM CHLORIDE 0.9% 1,000 ML IV SCH (18:25)
[2020-04-01] MEDS: FAMOTIDINE 20MG TABLET PO SCH ×2 (20:31→21:00)
[2020-04-01] MEDS: ATORVASTATIN CALCIUM 20MG TABLET PO SCH ×2 (20:31→21:00)
[2020-04-01] MEDS: IPRATROPIUM BROMIDE (0.02%) 0.5MG/2.5ML NEB HHN PRN (20:48)
[2020-04-01] MEDS: DIAZEPAM 5 MG TABLET PO PRN (22:20)
[2020-04-02] VITALS (12 sets, daily range): BP systolic 124–168; BP diastolic 63–99
[2020-04-02 05:43] LABS: BASOPHILS % 0.2 % (0.0-2.0); HEMATOCRIT. 29.3 % (36.0-48.0); HEMOGLOBIN. 9.1 g/dL (12.0-16.0); LYMPHOCYTES % 8.4 % (20.0-50.0); MEAN CORPUSCULAR HEMOGLOBIN 26.3 pg (28.0-32.0); MEAN CORPUSCULAR VOLUME 84.5 fL (81.0-99.0); MEAN PLATELET VOLUME 6.6 fl (7.4-10.4); MONOCYTES % 4.3 % (2.0-8.0); NEUTROPHILS % 87.1 % (40.0-76.0); PLATELET 433 x1000/uL (130-400); RED BLOOD CELL COUNT 3.47 mill/uL (4.2-5.4); RED CELL DISTRIBUTION WIDTH 16.8 % (11.6-14.6)
[2020-04-02 05:46] LABS: CHLORIDE 105 mEq/L (98-107)
[2020-04-02] MEDS: DILTIAZEM HCL 30MG TABLET PO SCH ×3 (06:31→21:49)
[2020-04-02] MEDS: PREDNISONE 20MG TABLET PO SCH ×2 (10:06→17:05)
[2020-04-02] MEDS: DOCUSATE SODIUM 100MG CAPSULE PO SCH ×2 (10:06→17:00)
[2020-04-02] MEDS: CEFTRIAXONE 1,000 MG in DEXTROSE 5% WATER 50 ML IV SCH (10:07)
[2020-04-02] MEDS: ENOXAPARIN 60MG/0.6ML SYR SUBCUT SCH ×2 (10:07→21:00)
[2020-04-02] MEDS: ONDANSETRON HCL 4MG/2ML INJ IV PRN (17:05)
[2020-04-02] MEDS: IPRATROPIUM BROMIDE (0.02%) 0.5MG/2.5ML NEB HHN PRN (18:10)
[2020-04-02] MEDS: FAMOTIDINE 20MG TABLET PO SCH (21:48)
[2020-04-02] MEDS: ATORVASTATIN CALCIUM 20MG TABLET PO SCH (21:48)
[2020-04-02] MEDS: ACETAMINOPHEN 325MG TABLET PO PRN (21:48)
[2020-04-02] MEDS ORDERED: HYDROCODONE/ACETAMINOPHEN 5/325MG TABLET PO PRN (23:30)
[2020-04-03] VITALS (11 sets, daily range): BP systolic 127–165; BP diastolic 57–97
[2020-04-03] MEDS: DILTIAZEM HCL 30MG TABLET PO SCH ×2 (06:00→14:12)
[2020-04-03 07:19] LABS: BASOPHILS % 0.5 % (0.0-2.0); HEMATOCRIT. 30.7 % (36.0-48.0); HEMOGLOBIN. 9.6 g/dL (12.0-16.0); MEAN CORPUSCULAR HEMOGLOBIN 26.1 pg (28.0-32.0); MEAN CORPUSCULAR VOLUME 83.8 fL (81.0-99.0); MEAN PLATELET VOLUME 6.7 fl (7.4-10.4); MONOCYTES % 6.6 % (2.0-8.0); NEUTROPHILS % 78.9 % (40.0-76.0); PLATELET 432 x1000/uL (130-400); RED BLOOD CELL COUNT 3.66 mill/uL (4.2-5.4); RED CELL DISTRIBUTION WIDTH 16.6 % (11.6-14.6)
[2020-04-03 07:24] LABS: CHLORIDE 104 mEq/L (98-107)
[2020-04-03] MEDS: PREDNISONE 20MG TABLET PO SCH (10:59)
[2020-04-03] MEDS: DOCUSATE SODIUM 100MG CAPSULE PO SCH (11:00)
[2020-04-03] MEDS: ENOXAPARIN 60MG/0.6ML SYR SUBCUT SCH (11:00)
[2020-04-03] MEDS ORDERED: AMLO10TA80 MT (13:16)
[2020-04-03] MEDS: ONDANSETRON HCL 4MG/2ML INJ IV PRN (14:06)
[2020-04-03] MEDS ORDERED: DOCU250C14 MT (16:29)
[2020-04-03] MEDS ORDERED: POTASSIUM CHLORIDE 20MEQ/PACKET PO NR (16:45)
[2020-04-04] MEDS ORDERED: PREDNISONE 20MG TABLET PO SCH (09:00)
== END 2020-04-03 19:00 | disposition home or self-care (01) | DRG 205 ==
LOC: ER 22:44 → 5WST 03-27 02:57 → ENRESERV 03-27 13:03 → 5EST 03-29 22:00
PROVIDERS: ADMIT Internal Medicine; ATTEND Internal Medicine
PROC: 5A09457 Assistance with Respiratory Ventilation, 24-96 Consecutive Hours, Continuous Positive Airway Pressure (ICD-10-PCS; principal; 2020-03-27)
DX: M94.0 Chondrocostal junction syndrome [Tietze] (principal); J96.21 Acute and chronic respiratory failure with hypoxia; J96.22 Acute and chronic respiratory failure with hypercapnia; E87.1 Hypo-osmolality and hyponatremia; I50.32 Chronic diastolic (congestive) heart failure; E44.1 Mild protein-calorie malnutrition; C34.90 Malignant neoplasm of unspecified part of unspecified bronchus or lung; J44.1 Chronic obstructive pulmonary disease with (acute) exacerbation; E87.2 Acidosis; Z68.1 Body mass index [BMI] 19.9 or less, adult; D64.9 Anemia, unspecified; E87.8 Other disorders of electrolyte and fluid balance, not elsewhere classified; I11.0 Hypertensive heart disease with heart failure; E78.5 Hyperlipidemia, unspecified; E11.9 Type 2 diabetes mellitus without complications; G89.4 Chronic pain syndrome; D72.829 Elevated white blood cell count, unspecified; E86.1 Hypovolemia; E87.6 Hypokalemia; G40.909 Epilepsy, unspecified, not intractable, without status epilepticus; I49.3 Ventricular premature depolarization; F10.11 Alcohol abuse, in remission; M19.90 Unspecified osteoarthritis, unspecified site; Z85.118 Personal history of other malignant neoplasm of bronchus and lung; Z86.73 Personal history of transient ischemic attack (TIA), and cerebral infarction without residual deficits; Z87.891 Personal history of nicotine dependence; Z99.81 Dependence on supplemental oxygen; Z88.5 Allergy status to narcotic agent; Z79.899 Other long term (current) drug therapy
CPT/HCPCS: 36415; 36600; 71045; 80048; 80053; 80305; 81003; 82375; 82728; 82805; 82962; 83540; 83550; 83880; 84145; 84484; 85025; 85379; 93005; 97162; 97164; 99285; J0696; J1650; J2270; J2405; J2920; J7030; J7060; J7512; J7626

== ENCOUNTER 2020-05-01 10:28 | Inpatient (IN) | payer MEDICARE, MEDICAID ==
[~2020-05-01] VITALS: Ht 149.9 cm; Wt 56.7 kg
[~2020-05-01 10:28] MED LIST changes: +AMLO10TA80 MT; +DOCU250C14 MT; -ENAL10TA PO
[2020-05-01] MEDS ORDERED: CEFTRIAXONE 1 G PREMIX 50 ML IV ONE (11:00)
[2020-05-01] MEDS ORDERED: MORPHINE SULFATE 2 MG/ML CPJ (NOT FOR IM USE) IV ONE ×2 (11:00→13:15)
[2020-05-01] MEDS ORDERED: SODIUM CHLORIDE 0.9% 1000ML BAG (SEPSIS BOLUS) IV ONE (11:00)
[2020-05-01] MEDS ORDERED: DOXYCYCLINE HYCLATE 100 MG/VIAL IV ONE (11:00)
[2020-05-01 11:36] LABS: BASOPHILS % 0.5 % (0.0-2.0); EOSINOPHILS % 1.1 % (0.0-5.0); HEMATOCRIT. 29.4 % (36.0-48.0); LYMPHOCYTES % 13.6 % (20.0-50.0); MEAN CORPUSCULAR HEMOGLOBIN 25.4 pg (28.0-32.0); MEAN CORPUSCULAR VOLUME 82.9 fL (81.0-99.0); MONOCYTES % 6.7 % (2.0-8.0); NEUTROPHILS % 78.1 % (40.0-76.0); PLATELET 703 x1000/uL (130-400); RED BLOOD CELL COUNT 3.54 mill/uL (4.2-5.4); RED CELL DISTRIBUTION WIDTH 17.1 % (11.6-14.6)
[2020-05-01 11:44] LABS: INR 1.1; PROTHROMBIN TIME 11.4 sec (9.6-11.0)
[2020-05-01 11:45] LABS: CHLORIDE 103 mEq/L (98-107)
[2020-05-01] MEDS ORDERED: DOXYCYCLINE 100MG in DEXTROSE 5% WATER 100ML IV SCH (12:00)
[2020-05-01] MEDS ORDERED: HEPARIN 5000 UNITS/ML VIAL IV PRN (14:00)
[2020-05-01] MEDS ORDERED: HEPARIN 5000 UNITS/ML VIAL IV SCH (15:00)
[2020-05-01] MEDS ORDERED: HEPARIN 25,000 UNITS PREMIX 250 ML IV PRN (15:00)
[2020-05-01] MEDS ORDERED: HEPARIN BOLUS PRN aPTT 37-44 IV (15:00)
[2020-05-01] MEDS ORDERED: MAGNESIUM/ALUMINUM HYDROXIDE/SIMETHICONE 30ML UDC PO PRN (16:30)
[2020-05-01] MEDS ORDERED: DOCUSATE SODIUM 100MG CAPSULE PO PRN (16:30)
[2020-05-01] MEDS ORDERED: HYDROCODONE/ACETAMINOPHEN 5/325MG TABLET PO PRN (16:30)
[2020-05-01] MEDS ORDERED: IPRATROPIUM/ALBUTEROL 0.5-3(2.5)MG/3ML NEB NEB PRN (16:30)
[2020-05-01] MEDS ORDERED: ACETAMINOPHEN 325MG TABLET PO PRN (16:30)
[2020-05-01] MEDS ORDERED: ONDANSETRON HCL 4MG/2ML INJ IV PRN (16:30)
[2020-05-01] MEDS ORDERED: CLONIDINE 0.1MG TABLET PO PRN (16:30)
[2020-05-01 21:43] VITALS: BP 143/80
[2020-05-01 22:00] VITALS: BP 143/80
[2020-05-01] MEDS ORDERED: HEPARIN 25,000 UNITS PREMIX 250 ML IV SCH (22:30)
[2020-05-02] VITALS (12 sets, daily range): BP systolic 113–159; BP diastolic 65–87
[2020-05-02] MEDS: CLONIDINE 0.1MG TABLET PO SCH ×4 (05:56→22:05)
[2020-05-02] MEDS: AMLODIPINE 10MG TABLET PO SCH (08:46)
[2020-05-02 09:21] LABS: BASOPHILS % 0.9 % (0.0-2.0); EOSINOPHILS % 2.9 % (0.0-5.0); HEMATOCRIT. 29.1 % (36.0-48.0); HEMOGLOBIN. 8.8 g/dL (12.0-16.0); LYMPHOCYTES % 12.9 % (20.0-50.0); MEAN CORPUSCULAR VOLUME 82.8 fL (81.0-99.0); MEAN PLATELET VOLUME 6.8 fl (7.4-10.4); MONOCYTES % 5.9 % (2.0-8.0); NEUTROPHILS % 77.4 % (40.0-76.0); PLATELET 693 x1000/uL (130-400); RED BLOOD CELL COUNT 3.51 mill/uL (4.2-5.4); RED CELL DISTRIBUTION WIDTH 17.4 % (11.6-14.6)
[2020-05-02 09:45] LABS: CHLORIDE 104 mEq/L (98-107)
[2020-05-02 09:49] LABS: LDL CHOLESTEROL 121 mg/dL (5-100)
[2020-05-02 09:50] LABS: HDL CHOLESTEROL 35 mg/dL (40-59)
[2020-05-02 09:50] LABS: BG BASE EXCESS 7.9 mmol/L (-2.0-2.0); BG CARBOXYHEMOGLOBIN 0.3 % (0.5-1.5); BG DEOXYHEMOGLOBIN 1.4 % (0.0-5.0); BG FRACTION INSPIRED OXYGEN 36; BG HCO3 ACT 33.3 mmol/L (22.0-26.0); BG METHEMOGLOBIN 0.3 % (0.0-1.5); BG OXYGEN SATURATION 98.6 % (92.0-98.5); BG PCO2 51.8 mmHg (35.0-45.0); BG PH 7.426 (7.350-7.450); BG PO2 127.8 mmHg (75.0-100.0); BG TOTAL HEMOGLOBIN 9.1 g/dL (12.0-18.0); BG VENT MODE MASK - VENTI
[2020-05-02] MEDS: IPRATROPIUM/ALBUTEROL 0.5-3(2.5)MG/3ML NEB NEB SCH ×3 (10:11→21:36)
[2020-05-02 16:13] LABS: BG BASE EXCESS 10.6 mmol/L (-2.0-2.0); BG CARBOXYHEMOGLOBIN 0.3 % (0.5-1.5); BG DEOXYHEMOGLOBIN 0.8 % (0.0-5.0); BG HCO3 ACT 37.3 mmol/L (22.0-26.0); BG METHEMOGLOBIN 0.3 % (0.0-1.5); BG OXYGEN SATURATION 99.2 % (92.0-98.5); BG OXYHEMOGLOBIN 98.6 % (94.0-97.0); BG PCO2 64.5 mmHg (35.0-45.0); BG PO2 179.4 mmHg (75.0-100.0); BG SAMPLE SITE RIGHT RADIAL; BG TOTAL HEMOGLOBIN 8.8 g/dL (12.0-18.0); BG VENT MODE MASK - SIMPLE
[2020-05-02] MEDS: BUDESONIDE 0.5MG/2ML NEB HHN SCH (21:36)
[2020-05-02] MEDS: ENOXAPARIN 60MG/0.6ML SYR SUBCUT SCH (22:06)
[2020-05-02] MEDS: LORAZEPAM 2MG/ML CPJ IV PRN (22:12)
[2020-05-03] VITALS (12 sets, daily range): BP systolic 98–139; BP diastolic 62–82
[2020-05-03] MEDS: IPRATROPIUM/ALBUTEROL 0.5-3(2.5)MG/3ML NEB NEB SCH ×7 (01:02→23:58)
[2020-05-03] MEDS: CLONIDINE 0.1MG TABLET PO SCH ×3 (06:04→21:00)
[2020-05-03 06:58] LABS: CHLORIDE 100 mEq/L (98-107)
[2020-05-03 07:02] LABS: BASOPHILS % 0.6 % (0.0-2.0); EOSINOPHILS % 1.8 % (0.0-5.0); HEMATOCRIT. 27.3 % (36.0-48.0); HEMOGLOBIN. 8.1 g/dL (12.0-16.0); LYMPHOCYTES % 14.4 % (20.0-50.0); MEAN CORPUSCULAR HEMOGLOBIN 24.8 pg (28.0-32.0); MEAN CORPUSCULAR VOLUME 83.3 fL (81.0-99.0); MONOCYTES % 5.4 % (2.0-8.0); NEUTROPHILS % 77.8 % (40.0-76.0); PLATELET 689 x1000/uL (130-400); RED BLOOD CELL COUNT 3.28 mill/uL (4.2-5.4); RED CELL DISTRIBUTION WIDTH 17.4 % (11.6-14.6)
[2020-05-03 07:34] LABS: INR 1.1; PROTHROMBIN TIME 11.6 sec (9.6-11.0)
[2020-05-03] MEDS: BUDESONIDE 0.5MG/2ML NEB HHN SCH ×2 (08:10→20:01)
[2020-05-03] MEDS ORDERED: POTASSIUM CHLORIDE 20MEQ TABLET SR PO NR (10:00)
[2020-05-03] MEDS: AMLODIPINE 10MG TABLET PO SCH (10:07)
[2020-05-03] MEDS: ENOXAPARIN 60MG/0.6ML SYR SUBCUT SCH ×2 (10:07→20:57)
[2020-05-03 10:13] LABS: BG BASE EXCESS 12.2 mmol/L (-2.0-2.0); BG CARBOXYHEMOGLOBIN 0.8 % (0.5-1.5); BG DEOXYHEMOGLOBIN 0.3 % (0.0-5.0); BG FRACTION INSPIRED OXYGEN 40; BG HCO3 ACT 38.3 mmol/L (22.0-26.0); BG METHEMOGLOBIN 0.3 % (0.0-1.5); BG OXYGEN SATURATION 99.7 % (92.0-98.5); BG OXYHEMOGLOBIN 98.6 % (94.0-97.0); BG PCO2 60.8 mmHg (35.0-45.0); BG PH 7.417 (7.350-7.450); BG PO2 200.9 mmHg (75.0-100.0); BG SAMPLE SITE RIGHT RADIAL; BG TOTAL HEMOGLOBIN 8.4 g/dL (12.0-18.0); BG VENT MODE MASK - SIMPLE
[2020-05-03] MEDS ORDERED: KCL 20MEQ/100ML PREMIX 100 ML IV NR ×2 (12:30→22:00)
[2020-05-03] MEDS: PREDNISONE 20MG TABLET PO SCH (13:38)
[2020-05-03] MEDS: LORAZEPAM 2MG/ML CPJ IV PRN (23:15)
[2020-05-04] VITALS (11 sets, daily range): BP systolic 105–132; BP diastolic 51–82
[2020-05-04] MEDS: IPRATROPIUM/ALBUTEROL 0.5-3(2.5)MG/3ML NEB NEB SCH ×2 (04:00→09:35)
[2020-05-04] MEDS: CLONIDINE 0.1MG TABLET PO SCH ×3 (06:20→21:32)
[2020-05-04 06:36] LABS: HEMATOCRIT. 27.8 % (36.0-48.0); HEMOGLOBIN. 8.3 g/dL (12.0-16.0); MEAN CORPUSCULAR HEMOGLOBIN 25.1 pg (28.0-32.0); MEAN CORPUSCULAR VOLUME 83.7 fL (81.0-99.0); PLATELET 678 x1000/uL (130-400); RED BLOOD CELL COUNT 3.32 mill/uL (4.2-5.4); RED CELL DISTRIBUTION WIDTH 17.4 % (11.6-14.6)
[2020-05-04 06:44] LABS: CHLORIDE 102 mEq/L (98-107)
[2020-05-04] MEDS: PREDNISONE 20MG TABLET PO SCH (09:33)
[2020-05-04] MEDS: AMLODIPINE 10MG TABLET PO SCH (09:33)
[2020-05-04] MEDS: ENOXAPARIN 60MG/0.6ML SYR SUBCUT SCH ×2 (09:34→21:31)
[2020-05-04] MEDS: BUDESONIDE 0.5MG/2ML NEB HHN SCH ×2 (09:35→20:15)
[2020-05-04 11:11] LABS: NUCLEATED RED BLOOD CELLS 2 /100 WBC; PLATELET ESTIMATE INCREASED
[2020-05-04] MEDS: IPRATROPIUM BROMIDE (0.02%) 0.5MG/2.5ML NEB HHN SCH ×3 (13:00→20:15)
[2020-05-04] MEDS: LORAZEPAM 2MG/ML CPJ IV PRN (21:31)
[2020-05-05] VITALS (11 sets, daily range): BP systolic 107–136; BP diastolic 63–82
[2020-05-05] MEDS: IPRATROPIUM BROMIDE (0.02%) 0.5MG/2.5ML NEB HHN SCH ×5 (00:09→16:41)
[2020-05-05] MEDS: MORPHINE SULFATE 2 MG/ML CPJ (NOT FOR IM USE) IV PRN ×2 (00:55→11:32)
[2020-05-05] MEDS: LORAZEPAM 2MG/ML CPJ IV PRN ×2 (02:38→08:35)
[2020-05-05] MEDS: CLONIDINE 0.1MG TABLET PO SCH ×2 (05:18→13:31)
[2020-05-05] MEDS: PREDNISONE 20MG TABLET PO SCH (08:22)
[2020-05-05] MEDS: AMLODIPINE 10MG TABLET PO SCH (08:22)
[2020-05-05] MEDS: ENOXAPARIN 60MG/0.6ML SYR SUBCUT SCH (08:23)
[2020-05-05] MEDS: BUDESONIDE 0.5MG/2ML NEB HHN SCH (09:20)
[2020-05-07] MEDS ORDERED: NITR0.4T SL (13:25)
[2020-05-07] MEDS ORDERED: DIAZ10TA4 MT (13:25)
[2020-05-08] MEDS ORDERED: PRED5TAB PO ×2 (19:53)
[2020-05-08] MEDS ORDERED: PRED10TA23 PO ×2 (19:53)
[2020-05-08] MEDS ORDERED: ENAL10TA PO (20:31)
[2020-05-08] MEDS ORDERED: GABA300C PO (20:31)
[2020-05-08] MEDS ORDERED: DILT240T12 PO (20:31)
[2020-05-08] MEDS ORDERED: LAMO200T9 PO (20:31)
[2020-05-08] MEDS ORDERED: DIAZ10TA PO (20:31)
== END 2020-05-05 19:47 | DRG 175 ==
LOC: ER 10:28 → 5EST 14:51 → EDBEDREQSVC 18:02 → ENRESERV 20:22
PROVIDERS: ADMIT Hospitalist; ATTEND Hospitalist
DX: I26.99 Other pulmonary embolism without acute cor pulmonale (principal); J96.02 Acute respiratory failure with hypercapnia; G82.50 Quadriplegia, unspecified; G93.41 Metabolic encephalopathy; I21.4 Non-ST elevation (NSTEMI) myocardial infarction; J96.01 Acute respiratory failure with hypoxia; E87.3 Alkalosis; C34.90 Malignant neoplasm of unspecified part of unspecified bronchus or lung; J98.11 Atelectasis; I82.413 Acute embolism and thrombosis of femoral vein, bilateral; E44.0 Moderate protein-calorie malnutrition; E87.6 Hypokalemia; D64.9 Anemia, unspecified; I10 Essential (primary) hypertension; Z96.642 Presence of left artificial hip joint; E11.9 Type 2 diabetes mellitus without complications; F17.200 Nicotine dependence, unspecified, uncomplicated; G40.909 Epilepsy, unspecified, not intractable, without status epilepticus; G89.4 Chronic pain syndrome; I25.10 Atherosclerotic heart disease of native coronary artery without angina pectoris; Z85.118 Personal history of other malignant neoplasm of bronchus and lung; Z86.73 Personal history of transient ischemic attack (TIA), and cerebral infarction without residual deficits; Z99.81 Dependence on supplemental oxygen; Z68.25 Body mass index [BMI] 25.0-25.9, adult; Z88.5 Allergy status to narcotic agent; Z79.899 Other long term (current) drug therapy; Z79.51 Long term (current) use of inhaled steroids; R26.9 Unspecified abnormalities of gait and mobility; R33.9 Retention of urine, unspecified; R54 Age-related physical debility; J44.9 Chronic obstructive pulmonary disease, unspecified
CPT/HCPCS: 36415; 36600; 71045; 71275; 72192; 80048; 80053; 80061; 82375; 82805; 83605; 83735; 83880; 84443; 84484; 85025; 93005; 93306; 93970; 96365; 97161; 97165; 97530; 99291; J0696; J1644; J1650; J2060; J2270; J2405; J3480; J3490; J7030; J7060; J7512; J7626

== ENCOUNTER 2020-05-18 18:37 | Emergency (ER) | payer MEDICARE, MEDICAID ==
[~2020-05-18] VITALS: Ht 170.2 cm; Wt 68.0 kg
[~2020-05-18 18:37] MED LIST changes: -ALBU4TAB6 PO; -DIAZ10TA MT; +DIAZ10TA PO; +DIAZ10TA4 MT; +DILT240T12 PO; +ENAL10TA PO; -FLUT12AE3 IH; -GABA-531 PO; +GABA300C PO; -LAM2 MT; +LAMO200T9 PO; +NITR0.4T SL; +PRED5TAB PO; -PRED5TAB48 PO
[2020-05-18] MEDS ORDERED: SODIUM CHLORIDE 0.9% 1,000 ML IV ONE (21:30)
[2020-05-18 23:08] LABS: EOSINOPHILS % 0.9 % (0.0-5.0); HEMATOCRIT. 30.5 % (36.0-48.0); LYMPHOCYTES % 12.9 % (20.0-50.0); MEAN CORPUSCULAR HEMOGLOBIN 25.8 pg (28.0-32.0); MEAN CORPUSCULAR VOLUME 87.3 fL (81.0-99.0); MEAN PLATELET VOLUME 6.6 fl (7.4-10.4); MONOCYTES % 6.5 % (2.0-8.0); NEUTROPHILS % 78.7 % (40.0-76.0); PLATELET 361 x1000/uL (130-400); RED CELL DISTRIBUTION WIDTH 23.1 % (11.6-14.6)
[2020-05-18 23:12] LABS: CHLORIDE 104 mEq/L (98-107)
[2020-05-18 23:15] LABS: INR 0.9; PROTHROMBIN TIME 9.8 sec (9.6-11.0)
[2020-05-18 23:25] LABS: PLATELET ESTIMATE NORMAL
[2020-05-18] MEDS ORDERED: MORPHINE SULFATE 4 MG/ML CPJ (NOT FOR IM USE) IV ONE (23:30)
[2020-05-19] MEDS ORDERED: IOHEXOL-350 100 ML BOTTLE ONE (01:07)
[2020-05-19] MEDS ORDERED: PIPERACILLIN/TAZ 3.375G PREMIX 50 ML IV NR (01:30)
[2020-05-19] MEDS ORDERED: CLONIDINE 0.1MG TABLET PO PRN (07:15)
[2020-05-19] MEDS ORDERED: ONDANSETRON HCL 4MG/2ML INJ IV PRN (07:15)
[2020-05-19] MEDS ORDERED: DOCUSATE SODIUM 100MG CAPSULE PO PRN (07:15)
[2020-05-19] MEDS ORDERED: ACETAMINOPHEN 325MG TABLET PO PRN (07:15)
[2020-05-19] MEDS ORDERED: IPRATROPIUM/ALBUTEROL 0.5-3(2.5)MG/3ML NEB NEB PRN (07:15)
[2020-05-19] MEDS ORDERED: MAGNESIUM/ALUMINUM HYDROXIDE/SIMETHICONE 30ML UDC PO PRN (07:15)
[2020-05-19] MEDS ORDERED: GUAIFENESIN 200MG/10ML SUGAR FREE UDC PO PRN (07:15)
[2020-05-19] MEDS ORDERED: APIXABAN 5 MG TABLET PO SCH (09:00)
[2020-05-19] MEDS ORDERED: AMLODIPINE 10MG TABLET PO SCH (09:00)
[2020-05-19] MEDS ORDERED: PREDNISONE 20MG TABLET PO SCH (09:00)
[2020-05-19] MEDS ORDERED: IPRATROPIUM/ALBUTEROL 0.5-3(2.5)MG/3ML NEB NEB SCH (12:00)
[2020-05-19] MEDS ORDERED: APIX5TAB PO (13:12)
[2020-05-19 15:45] VITALS: BP 134/76
[2020-05-19] MEDS ORDERED: DIAZEPAM 5 MG TABLET PO SCH (21:00)
== END 2020-05-19 15:54 | disposition home or self-care (01) ==
LOC: ER 18:37 → CANBEDREQ 05-19 16:59
DX: H70.009 Acute mastoiditis without complications, unspecified ear (principal); R00.0 Tachycardia, unspecified; D68.59 Other primary thrombophilia; J44.9 Chronic obstructive pulmonary disease, unspecified; Z90.710 Acquired absence of both cervix and uterus; F17.290 Nicotine dependence, other tobacco product, uncomplicated; Z98.890 Other specified postprocedural states; Z79.899 Other long term (current) drug therapy; Z88.5 Allergy status to narcotic agent
CPT/HCPCS: 36415; 70486; 71275; 74177; 80053; 83690; 83880; 84484; 85025; 85610; 93005; 96374; 96375; 99285; J2270; J2543; J7030; J7512; Q9967